=== PATIENT | female | born 1945 | race Caucasian/White ===

== ENCOUNTER → 2018-03-02 09:24 | Outpatient (CLI) | payer MEDICARE, OTHER, SELFPAY ==
--- NOTE | 2018-03-02 09:50 | DI.CT.S_ITS ---
PROCEDURE: CT LUMBAR SPINE WO CON INDICATIONS: lower back pains TECHNIQUE: Noncontrast 3 mm thick sections acquired from the T12 level to the sacrum. Sagittal and coronal reformats were constructed. For radiation dose reduction, the following was used: automated exposure control. COMPARISON: Merged With [facility], CT, CT LUMBAR SPINE WO CON, 03/09/2015, 19:30. FINDINGS: Image quality: Excellent. Bones: Diffuse osteopenia. Trace retrolisthesis of L3 on L4. No acute vertebral body compression fractures. No suspicious lytic or blastic bony lesions. Central spinal caliber is of normal overall caliber. No pars defects. Levoscoliosis centered at L2-L3. T12-L1: Mild broad-based posterior disc bulge and bilateral facet disease. No high-grade canal stenosis. No definite foraminal narrowing. L1-L2: Broad-based posterior disc bulge and bilateral facet arthropathy. Mild canal narrowing partial effacement of the left and right lateral recesses. No definite bony foraminal stenosis L2-L3: Broad-based posterior disc bulge and bilateral facet arthropathy. No high-grade canal stenosis. Lateral recesses appear grossly patent. Mild right foraminal narrowing. No left foraminal stenosis L3-L4: Broad-based posterior disc bulge and bilateral facet arthropathy. Moderate canal narrowing. There is partial effacement of the left right lateral recesses although probably symmetric. No definite bony foraminal stenoses L4-L5: Broad-based posterior disc bulge and bilateral facet arthropathy. Moderate canal narrowing Partial effacement of the left and right lateral recesses, although appears symmetric. No definite bony foraminal narrowing L5-S1: Broad-based posterior disc bulge and bilateral facet arthropathy. No high-grade canal stenosis. Minimal if any effacement of the lateral recesses. No definite bony foraminal narrowing. Soft tissues: No retroperitoneal masses or hematomas. Visualized aorta is normal in caliber. IMPRESSION: Diffuse lumbar disc degeneration, most pronounced in L1-L2 and L2-L3. Levoscoliosis as before. Moderate L3-L4 and L4-L5 canal narrowing. No definite interval change since prior study dated 03/09/15 Mild right L2-L3 foraminal stenosis, stable to minimally progressed. Dictated by: Nazario Watts M.D. on 03/02/2018 at 10:32 Approved by: Nazario Watts M.D. on 03/02/2018 at 10:41
== END ==
PROVIDERS: PCP Family Medicine; Visit Provider Physical Medicine & Rehabilitation
DX: M54.5 Low back pain (principal); M51.16 Intervertebral disc disorders with radiculopathy, lumbar region; M48.061 Spinal stenosis, lumbar region without neurogenic claudication; M41.86 Other forms of scoliosis, lumbar region
CPT/HCPCS: 72131

== ENCOUNTER 2018-03-06 12:20 | Outpatient (CLI) | payer MEDICARE, OTHER, SELFPAY ==
[2018-03-06] VITALS (7 sets, daily range): BP systolic 121–167; BP diastolic 53–97; PULSE 73–84; RESP 16–18; TEMP 36.3; O2SAT 95–100
--- NOTE | 2018-03-06 12:22 | DI.RAD.S_ITS ---
PROCEDURE: PAIN L/S TRANSFORAMINAL INJECT INDICATIONS: SPINAL STENOSIS FINDINGS: Fluoroscopic spot filming was performed to verify placement of spinal needles at the L3-L4 level(s), as labeled on the films. Appropriate location(s) of the needle tip(s) was confirmed by injection of iodinated contrast. IMPRESSION: Fluoroscopy for pain management. Dictated by: Ric Cuello M.D. on 03/06/2018 at 17:18 Approved by: Ric Cuello M.D. on 03/06/2018 at 17:18
[2018-03-06] MEDS: MIDAZOLAM 5 MG/5 ML VIAL IV (13:21)
[2018-03-06] MEDS: BUPIVACAINE 0.25% (PF) VIAL 2 ML INJ (13:27)
[2018-03-06] MEDS: IOPAMIDOL 15 ML VIAL 3 ML INJ (13:27)
[2018-03-06] MEDS: DEXAMETHASONE 10 MG/ML VIAL 20 MG INJ (13:28)
[2018-03-06] MEDS: methylPREDNISolone acetate 80 MG/ML VIAL INJ (13:28)
--- NOTE | 2018-03-06 13:31 | PC.NURSE ---
assisting pt off table and transporting to post proc area in stable condition
--- NOTE | 2018-03-06 13:37 | P.PCN_ITS ---
Procedures Date/Time Date of procedure: 03/06/18 Time of procedure: 13:36 General Procedure description: PROVIDER: Maurice Schroeder DO Operative Note PREOP DIAGNOSIS 1. FORAMINAL STENOSIS WITH LE SYMPTOMS, POST OP DIAGNOSIS 1. FORAMINAL STENOSIS WITH LE SYMPTOMS, PROCEDURES 1. FLUOROSCOPICALLY GUIDED CONTRAST CONTROLLED TRANSFORAMINAL EPIDURAL STEROID INJECTION - LEFT L3/4 TFESI SURGEON: Maurice Schroeder, DO INDICATIONS Holly is referred by Dr. Walker for treatment of Foraminal Stenosis with left LE Symptoms FINDINGS Foraminal Nerve Root Compression secondary to disc disease and facet hypertrophy DESCRIPTION OF PROCEDURE Following denial of allergy and review of potential side effects and complications, including, but not necessarily limited to, infection, allergic reaction, local tissue breakdown, stroke, temporary or permanent nerve injury, paralysis, and possible , the patient indicated that the patient understood and agreed to proceed. An informed consent document was signed by the patient, witnessed by a nurse, and placed in the patient's chart. Additionally, other treatment options including medications, modalities, and physical therapy were reviewed with the patient. After review of previous anaesthesic history and IV conscious sedation the patient was deemed safe to proceed with todays procedure with IV conscious sedation as ASA class II designation. Safety time-out was performed to confirm patient ID, procedure to be performed and site of procedure. IV sedation was accomplished with a combination of 3mg was administered by the RN after DO order , titrated to patient comfort during the course of the procedure while the patient remained responsive to all verbal commands In the prone position following sterile prep and drape of the lumbar region, the left L3/4 posterior neuroforamen was identified fluoroscopically. The skin was anesthetized via a 25-gauge 1.5-inch needle with 1% lidocaine solution. At this point, a 25-gauge 3.5-inch spinal needle was atraumatically introduced and advanced under fluoroscopic guidance through the posterior left L3/4 neuroforamen to approximately the anterior aspect of the canal. Depth was confirmed on lateral view. Following negative aspiration, injection of approximately 1.5 cc of Isovue 200 under live fluoroscopy in the AP view confirmed excellent flow along the nerve root, into the epidural space without vascular or intrathecal uptake observed Radiological data, including multiple fluoroscopic views of the lumbosacral spine, reveal a spinal needle at the left L3/4 posterior neuroforamen. Subsequent views show flow of contrast material flowing superiorly and inferiorly along the nerve root confirming epidural flow. Subsequently, a test dose of 1.5 cc of 1% lidocaine solution was administered and patient was observed for two minutes for signs or symptoms of complications , including abdominal pain, shortness of breath, bilateral upper or lower extremity weakness, nausea and vomiting, prior to steroid injection. At this point, a total of 3 cc or 20 mg of dexamethasone and 80mg Depo medrol was injected without incident. The patient tolerated the procedure well without signs or symptoms of complications prior to transfer to the recovery area continued monitoring without incident. The patient was then transferred to the recovery area where they were observed for an appropriate time after the injection. The patient reported a VAS score of 7 prior to the procedure and a post-procedure VAS of 0. Total Fluoroscopy Time: 24.2 seconds Total Conscious Sedation Time: 24min POST OP INSTRUCTIONS The patient was provided a Pain Log to continue to record their response to the target-specific procedure prior to follow-up visit with their referring physician. Additionally, specific post-injection care instructions and a contact number to our office were provided if concerns arise regarding possible complications associated with the procedure are suspected. Maurice Schroeder, Complications: none
--- NOTE | 2018-03-07 12:49 | PC.NURSE ---
FOLLOW UP CALL MADE. LEFT MSG WITH CLINIC NUMBER AND HOURS IF PT HAS QUESTIONS/CONCERNS.
== END 2018-03-06 14:22 ==
PROVIDERS: PCP Family Medicine; Visit Provider Physical Medicine & Rehabilitation
DX: M48.061 Spinal stenosis, lumbar region without neurogenic claudication (principal); M51.16 Intervertebral disc disorders with radiculopathy, lumbar region
CPT/HCPCS: 64483; 99152; J1040; J1100; J2250

== ENCOUNTER 2018-07-04 09:35 | Outpatient (CLI) | payer MEDICARE, OTHER, SELFPAY ==
[2018-07-04] VITALS (8 sets, daily range): BP systolic 119–142; BP diastolic 55–91; PULSE 67–84; RESP 16–18; TEMP 36; O2SAT 96–100
--- NOTE | 2018-07-04 09:37 | DI.RAD.S_ITS ---
PROCEDURE: PAIN L/SI FACET INJ/BLK 1STL INDICATIONS: SPONDYLOSIS FINDINGS: Fluoroscopic spot filming was performed to verify placement of spinal needles at the left L4-5, left L5-S1 facet joints, as labeled on the films. Appropriate location(s) of the needle tip(s) was confirmed by injection of iodinated contrast. IMPRESSION: Successful facet joint localization and injection on the left, at L4-5 and L5-S1. Dictated by: Wil Rivera M.D. on 07/04/2018 at 12:00 Approved by: Wil Rivera M.D. on 07/04/2018 at 12:01
[2018-07-04] MEDS: MIDAZOLAM 5 MG/5 ML VIAL IV (10:18)
[2018-07-04] MEDS: BUPIVACAINE 0.5% (PF) VIAL 2 ML INJ (10:25)
[2018-07-04] MEDS: IOPAMIDOL 15 ML VIAL 3 ML INJ (10:25)
[2018-07-04] MEDS: BETAMETHASONE 30 MG/5 ML MDV 12 MG INJ (10:25)
--- NOTE | 2018-07-04 10:32 | P.PCN_ITS ---
Procedures Date/Time Date of procedure: 07/04/18 Time of procedure: 10:31 General Procedure description: PREOP DIAGNOSIS 1. FACET ARTHROPATHY, 2. AXIAL LBP, 3. MULTILEVEL DDD, POST OP DIAGNOSIS 1. FACET ARTHROPATHY, 2. AXIAL LBP, 3. MULTILEVEL DDD, PROCEDURES 1. FLUORSCOPICALLY GUIDED CONTRAST CONTROLLED FACET JOINT INJECTIONS LEFT L4/5, L5/S1 SURGEON: Maurice Schroeder, DO INDICATIONS Holly is referred by for treatment of Axial LBP FINDINGS Multilevel Facet Arthropathy with Clinically significant axial LBP DESCRIPTION OF PROCEDURE Fluoroscopically guided, contrast-controlled left L4/5, L5/S1 facet joint inje ctions. Following denial of allergy and review of potential side effects and complications, including, but not necessarily limited to, infection, allergic reaction, local tissue breakdown, stroke, temporary or permanent nerve injury, paralysis, and possible , the patient indicated that the patient understood and agreed to proceed. An informed consent document was signed by the patient, witnessed by a nurse, and placed in the patient's chart. Additionally, other treatment options including medications, modalities, and physical therapy were reviewed with the patient. After review of previous anaesthesic history and IV conscious sedation the patient was deemed safe to proceed with todays procedure with IV conscious sedation as ASA class II designation. Safety time-out was performed to confirm patient ID, procedure to be performed and site of procedure. IV sedation was accomplished with a combination of 2mg was administered by the RN after DO order, titrated to patient comfort during the course of the procedure while the patient remained responsive to all verbal commands. In the prone position, following sterile prep and drape of the lumbar region, the posterior aspect of the left L4/5, L5/S1 facet joints were identified fluoroscopically. The skin was anesthetized via a 25-gauge 1.5-inch needle with 1% lidocaine solution into the corresponding facet joints. At this point, a 22- gauge 3.5-inch spinal needle was atraumatically introduced and advanced under fluoroscopic guidance into the corresponding facet joints. Following negative aspiration, injections of approximately 0.2-cc of Isovue 200 confirmed interarticular placement without vascular uptake. Radiological data, including multiple fluoroscopic views of the lumbosacral spine, reveal a spinal needle at the left L4/5, L5/S1 facet joints. Subsequent views show flow of contrast material both superiorly and inferiorly within the joint space without vascular or intrathecal uptake. At this point, a total of 0.5 cc including a mixture of 0.25cc Marcaine and 0.25cc betamethasone was injected without complication into each of the corresponding facet joints. The procedure tolerated the procedure well without signs or symptoms of complications prior to transfer to the recovery area continued monitoring without incident. The patient was then transferred to the recovery area where they were observed for an appropriate period of time after the injection. The patient reported a VAS score of 7 prior to the procedure and a post-procedure VAS of 0. Total Fluoroscopy Time: 12.7 seconds Total Conscious Sedation Time: 24min POST OP INSTRUCTIONS The patient was provided a Pain Log to continue to record their response to the target-specific procedure prior to follow-up visit with their referring physician. Additionally, specific post-injection care instructions and a contact number to our office were provided if concerns arise regarding possible complications associated with the procedure are suspected. Maurice Schroeder, Complications: none
--- NOTE | 2018-07-04 10:38 | PC.NURSE ---
pt tolerated procedure, pt awake and alert, Transferred to pre procedure room via wheelchair for continued monitoring with Sari NOVA.
--- NOTE | 2018-07-04 10:39 | PC.NURSE ---
ACCEPTED CARE OF PT IN POST PROC AREA IN STABLE CONDITION
--- NOTE | 2018-07-04 11:01 | DI.RAD.S_ITS ---
PROCEDURE: XR KNEE LT 3V INDICATIONS: left knee pain TECHNIQUE: 3 views of the knee were acquired. COMPARISON: None. FINDINGS: Bones: No fractures or dislocations. No suspicious bony lesions. Small tricompartment osteophytes. Soft tissues: No joint effusion. No suspicious soft tissue calcifications. IMPRESSION: 1. No acute bony abnormality of the left knee. 2. Degenerative arthritis of the left knee. There is probable joint space loss. But no weight bearing view was provided. Consider standing weight-bearing view to evaluate degree of joint space loss. Dictated by: Hossein Duncan M.D. on 07/04/2018 at 12:40 Approved by: Hossein Duncan M.D. on 07/04/2018 at 12:41
== END 2018-07-04 11:10 | disposition home or self-care (01) ==
LOC: RAD 09:36
PROVIDERS: PCP Family Medicine; Visit Provider Physical Medicine & Rehabilitation
DX: M47.817 Spondylosis without myelopathy or radiculopathy, lumbosacral region (principal); M47.816 Spondylosis without myelopathy or radiculopathy, lumbar region; M51.36 Other intervertebral disc degeneration, lumbar region; M51.37 Other intervertebral disc degeneration, lumbosacral region; M17.12 Unilateral primary osteoarthritis, left knee; M25.562 Pain in left knee; M54.5 Low back pain
CPT/HCPCS: 64493; 64494; 73562; 99152; J0702; J2250

== ENCOUNTER 2018-07-31 15:37 | Outpatient (CLI) | payer MEDICARE, OTHER, SELFPAY ==
[2018-07-31] VITALS (9 sets, daily range): BP systolic 115–157; BP diastolic 57–76; PULSE 83–90; RESP 16–20; TEMP 36; O2SAT 94–98
--- NOTE | 2018-07-31 15:41 | DI.RAD.S_ITS ---
PROCEDURE: PAIN L/S TRANSFORAMINAL INJECT INDICATIONS: SPINAL STENOSIS FINDINGS: Fluoroscopic spot filming was performed to verify placement of spinal needles at the L4-5 neural foramen level(s), as labeled on the films, on the left. Appropriate location(s) of the needle tip(s) was confirmed by injection of iodinated contrast. IMPRESSION: Perineural steroid epidural injection along the course of the left L4 nerve root adjacent to the left L4-L5 neural foramen. Dictated by: Wil Rivera M.D. on 07/31/2018 at 16:59 Approved by: Wil Rivera M.D. on 07/31/2018 at 17:00
[2018-07-31] MEDS: MIDAZOLAM 5 MG/5 ML VIAL IV (16:07)
[2018-07-31] MEDS: fentaNYL 100 MCG/2 ML INJ 50 MCG IV (16:13)
[2018-07-31] MEDS: BUPIVACAINE 0.25% (PF) VIAL 2 ML INJ (16:22)
[2018-07-31] MEDS: IOPAMIDOL 15 ML VIAL 3 ML INJ (16:22)
[2018-07-31] MEDS: DEXAMETHASONE 10 MG/ML VIAL 20 MG INJ (16:22)
--- NOTE | 2018-07-31 16:37 | P.PCN_ITS ---
Procedures Date/Time Date of procedure: 07/31/18 Time of procedure: 16:35 General Procedure description: PREOP DIAGNOSIS 1. FORMAINAL STENOSIS WITH LE SYMPTOMS POST OP DIAGNOSIS 1. FORMAINAL STENOSIS WITH LE SYMPTOMS PROCEDURES 1. FLUOROSCOPICALLY GUIDED CONTRAST CONTROLLED TRANSFORAMINAL EPIDURAL STEROID INJECTION - LEFT L4/5 PHYSICIAN: Maurice Schroeder DO INDICATIONS: Holly is referred by Dr. Walker for treatment of Foraminal Stenosis with Left LE Symptoms FINDINGS Foraminal Nerve Root Compression secondary to disc disease and facet hypertrophy DESCRIPTION OF PROCEDURE: Following denial of allergy and review of potential side effects and complications, including, but not necessarily limited to, infection, allergic reaction, local tissue breakdown, stroke, temporary or permanent nerve injury, paralysis, and possible , the patient indicated that the patient understood and agreed to proceed. An informed consent document was signed by the patient, witnessed by a nurse, and placed in the patient's chart. Additionally, other treatment options including medications, modalities, and physical therapy were reviewed with the patient. After review of previous anaesthesic history and IV conscious sedation the patie nt was deemed safe to proceed with todays procedure with IV conscious sedation as ASA class II designation. Safety time-out was performed to confirm patient ID, procedure to be performed and site of procedure. IV sedation was accomplished with a combination of 3mg of Versed and 50mcg of Fentanyl administered by the RN after DO order, titrated to patient comfort during the course of the procedure while the patient remained responsive to all verbal commands In the prone position following sterile prep and drape of the lumbar region, the left L4/5 posterior neuroforamen was identified fluoroscopically. The skin was anesthetized via a 25-gauge 1.5-inch needle with 1% lidocaine solution. At this point, a 25-gauge 3.5-inch spinal needle was atraumatically introduced and advanced under fluoroscopic guidance through the posterior left L4/5 neuroforamen to approximately the anterior aspect of the canal. Depth was confirmed on lateral view. Following negative aspiration, injection of appr oximately 1.5 cc of Isovue 200 under live fluoroscopy in the AP view confirmed excellent flow along the nerve root, into the epidural space without vascular or intrathecal uptake observed Radiological data, including multiple fluoroscopic views of the lumbosacral spine, reveal a spinal needle at the left L4/5 posterior neuroforamen. Subsequent views show flow of contrast material flowing superiorly and inferiorly along the nerve root confirming epidural flow. Subsequently, a test dose of 1.5 cc of 1% lidocaine solution was administered and patient was observed for two minutes for signs or symptoms of complications, including abdominal pain, shortness of breath, bilateral upper or lower extremity weakness, nausea and vomiting, prior to steroid injection. At this point, a total of 2cc or 20mg of dexamethasone was injected without incident. The procedure tolerated the procedure well without signs or symptoms of complications prior to transfer to the recovery area continued monitoring without incident. The patient was then transferred to the recovery area where they were observed for an appropriate time after the injection. The patient reported a VAS score of 7 prior to the procedure and a post- procedure VAS of 0. Total Fluoroscopy Time: 20.9 seconds Total Conscious Sedation Time: 24min POST OP INSTRUCTIONS The patient was provided a Pain Log to continue to record their response to the target-specific procedure prior to follow-up visit with their referring physician. Additionally, specific post-injection care instructions and a contact number to our office were provided if concerns arise regarding possible complications associated with the procedure are suspected. Maurice Schroeder DO Complications: none
--- NOTE | 2018-07-31 16:41 | PC.NURSE ---
Pt returned post procedure via wheelchair awake and alert. Pt able to get from w/c to chair with standby assist. Resumed monitoring from Sari NOVA.
--- NOTE | 2018-08-01 15:46 | PC.NURSE ---
FOLLOW UP CALL MADE, LEFT PHONE MSG WITH CLINIC NUMBER AND HOURS IN CASE OF QUESTIONS/CONCERNS.
== END 2018-07-31 16:55 ==
LOC: RAD 15:40
PROVIDERS: PCP Family Medicine; Visit Provider Physical Medicine & Rehabilitation
DX: M48.061 Spinal stenosis, lumbar region without neurogenic claudication (principal); M51.16 Intervertebral disc disorders with radiculopathy, lumbar region; M47.27 Other spondylosis with radiculopathy, lumbosacral region
CPT/HCPCS: 64483; 99152; J1100; J2250; J3010

== ENCOUNTER 2018-10-04 12:29 | Outpatient (CLI) | payer MEDICARE, OTHER, SELFPAY ==
[2018-10-04] VITALS (7 sets, daily range): BP systolic 124–151; BP diastolic 65–108; PULSE 77–87; RESP 14–16; TEMP 36.2; O2SAT 97–100
--- NOTE | 2018-10-04 12:31 | DI.RAD.S_ITS ---
PROCEDURE: PAIN L/SI FACET INJ/BLK 1STL INDICATIONS: SPONDYLOSIS FINDINGS: Fluoroscopic spot filming was performed to verify placement of spinal needles at the level(s) as labeled on the films. Appropriate location(s) of the needle tip(s) was confirmed by injection of iodinated contrast. IMPRESSION: Fluoroscopy for pain management. Dictated by: Ric Cuello M.D. on 10/04/2018 at 14:54 Approved by: Ric Cuello M.D. on 10/04/2018 at 14:55
[2018-10-04] MEDS: MIDAZOLAM 5 MG/5 ML VIAL IV (13:25)
[2018-10-04] MEDS: fentaNYL 100 MCG/2 ML INJ 50 MCG IV (13:25)
[2018-10-04] MEDS: BETAMETHASONE 30 MG/5 ML MDV 12 MG INJ (13:35)
[2018-10-04] MEDS: LIDOCAINE 1% 20 ML INJ 10 ML INJ (13:35)
[2018-10-04] MEDS: IOPAMIDOL 15 ML VIAL 3 ML INJ (13:35)
[2018-10-04] MEDS: BUPIVACAINE 0.5% (PF) VIAL 2 ML INJ (13:35)
--- NOTE | 2018-10-04 13:42 | PC.NURSE ---
pt tolerated procedure well. Able to get off the table with standby assist. Transferred pt to pre procedure room awake and alert via wheelchair for continued monitoring with Sari NOVA.
--- NOTE | 2018-10-04 13:51 | P.PCN_ITS ---
Procedures Date/Time Date of procedure: 10/04/18 Time of procedure: 13:50 General Procedure description: POST OP DIAGNOSIS 1. FACET ARTHROPATHY PROCEDURES 1. Left L4, L5 and S1 MB BLOCKS PHYSICIAN: DO PETEY Qiu Holly is referred by Dr. Walker for treatment of Left Axial LBP. DESCRIPTION OF PROCEDURE Fluoroscopically guided, contrast-controlled left L4, L5 and S1 medial branch blocks with 0.5cc of 0.5% Marcaine. Following review of allergy and review of potential side effects and complications, including, but not necessarily limited to, infection, allergic reaction, local tissue breakdown, nerve injury, paralysis, stroke and possible , the patient indicated that the patient understood and agreed to proceed. An informed consent document was signed by the patient, witnessed by a nurse, and placed in the patient's chart. After review of previous anaesthesic history and IV conscious sedation the patient was deemed safe to proceed with todays procedure with IV conscious sedation as ASA class II designation. Safety time-out was performed to confirm patient ID, procedure to be performed and site of procedure. IV sedation was accomplished with a combination of 3mg of Versed and 50mcg of Fentanyl was administered by the RN after DO order, titrated to patient comfort during the course of the procedure while the patient remained responsive to all verbal commands. In the prone position, following sterile prep and drape of the lumbar region, the left L4, L5 and S1 anatomical location of the medial branch of the dorsal ramus was identified fluoroscopically. Subsequently an anesthetic skin wheal using 1% lidocaine solution was initiated at each of the anatomical spots. Subsequently then a 22-gauge 3.5-inch spinal needle was atraumatically introduced and advanced under fluoroscopic guidance at each of the corresponding sites at the left L4, L5 and S1 MB. After negative aspiration, 0.2 cc of Isovue 200 was injected, confirming placement without vascular or intrathecal uptake. Subsequently then 0.5 cc of 0.5% Marcaine solution was injected at each of the corresponding sites at the left L4, L5 and S1 medial branch locations. The patient tolerated the procedure well without signs or symptoms of complications. The patient tolerated the procedure well without signs or symptoms of complications prior to transfer to the recovery area continued monitoring without incident. Post-procedure, the patient was monitored initiating provocative activities to measure the amount of relief from block of the facetogenic pain. The patient reported a VAS of 7 prior to the procedure and a post-procedure VAS of 1. It has been a pleasure to assist in the diagnostic and therapeutic care of your patient. Total Fluoroscopy Time: 24.8 seconds Total Conscious Sedation Time: 24min POST OP INSTRUCTIONS The patient was provided with a Pain Log to complete over the next several hours and subsequent days prior to the patient's follow up with the ordering physician. If the patient has human resources representative relief to the solution applied, then they may be a candidate for medial branch rhizotomy. The patient is aware, was provided, once again, with a Pain Log and will follow up with the referring physician for review and clinical correlation Maurice Schroeder DO Complications: none
--- NOTE | 2018-10-04 13:58 | PC.NURSE ---
ACCEPTED CARE OF PT IN POST PROC AREA IN STABLE CONDITION
== END 2018-10-04 14:15 | disposition home or self-care (01) ==
LOC: RAD 12:30
PROVIDERS: PCP Family Medicine; Visit Provider Physical Medicine & Rehabilitation
DX: M47.817 Spondylosis without myelopathy or radiculopathy, lumbosacral region (principal); M47.816 Spondylosis without myelopathy or radiculopathy, lumbar region
CPT/HCPCS: 64493; 64494; 99152; J0702; J2250; J3010

== ENCOUNTER 2018-11-08 11:05 | Outpatient (CLI) | payer MEDICARE, OTHER, SELFPAY ==
[2018-11-08] VITALS (14 sets, daily range): BP systolic 106–145; BP diastolic 52–90; PULSE 66–78; RESP 16–20; TEMP 36.1; O2SAT 97–100
--- NOTE | 2018-11-08 11:07 | DI.RAD.S_ITS ---
PROCEDURE: PAIN L/S MED/LAT N RFA INDICATIONS: SPONDYLOSIS FINDINGS: Fluoroscopic spot filming was performed to verify placement of spinal needles at the L4, L5, S1 level(s), as labeled on the films. Appropriate location(s) of the needle tip(s) was confirmed by injection of iodinated contrast. Dictated by: Nazario Watts M.D. on 11/08/2018 at 13:00 Approved by: Nazario Watts M.D. on 11/08/2018 at 13:00
--- NOTE | 2018-11-08 11:08 | DI.RAD.S_ITS ---
PROCEDURE: XR LUMBAR SPINE MIN 4V INDICATIONS: eval TECHNIQUE: 4 views of the lumbar spine were acquired. COMPARISON: [facility], CR, SPINE LUMB MIN 4VW, 08/21/2014, 16:01. FINDINGS: Bones: No fracture or focal osseous destruction. Trace retrolisthesis of L3 on L4. Multilevel degenerative endplate sclerosis and spurring. Diffuse facet arthropathy. Severe narrowing of the L2-L3 disc space. Moderate narrowing of the L1-L2 and L3-L4 disc space. Mild narrowing of the L4-L5 disc space. Levoscoliosis Soft tissues: Scattered vascular calcifications seen in the aorta. Right upper quadrant surgical clips. Oblique images: No pars defects. IMPRESSION: Levoscoliosis and multilevel lumbar spondylosis and facet arthropathy as above. No definite change since 08/21/14. Dictated by: Nazario Watts M.D. on 11/08/2018 at 13:56 Approved by: Nazario Watts M.D. on 11/08/2018 at 14:04
[2018-11-08] MEDS: MIDAZOLAM 5 MG/5 ML VIAL IV (11:55)
[2018-11-08] MEDS: fentaNYL 100 MCG/2 ML INJ 50 MCG IV (11:55)
[2018-11-08] MEDS: BUPIVACAINE 0.5% (PF) VIAL 5 ML INJ (12:00)
[2018-11-08] MEDS: LIDOCAINE 1% 20 ML INJ 10 ML INJ (12:01)
[2018-11-08] MEDS: BETAMETHASONE 30 MG/5 ML MDV 12 MG INJ (12:01)
--- NOTE | 2018-11-08 12:24 | PC.NURSE ---
Pt tolerated procedure well. Able to get off table with standby assist. Transferred pt via wheelchair to pre procedure room for continued monitoring with Tu.
--- NOTE | 2018-11-08 12:37 | P.PCN_ITS ---
Procedures Date/Time Date of procedure: 11/08/18 Time of procedure: 12:36 General Procedure description: PREOP DIAGNOSIS 1. RECALCITRANT FACET ARTHROPATHY, POST OP DIAGNOSIS 1. RECALCITRANT FACET ARTHROPATHY, PROCEDURES 1. LEFTT L4 AND L5 MEDIAL BRANCH RADIOFREQUENCY NEUROTOMY AND LEFT S1 DORSAL RAMUS RADIOFREQUENCY NEUROTOMY, PHYSICIAN: Maurice Schroeder DO INDICATIONS Holly is referred by for treatment of facet arthropathy. DESCRIPTION OF PROCEDURE Left L4 and L5 medial branch radiofrequency neurotomy and left S1 dorsal ramus branch radiofrequency neurotomy under fluoroscopy with conscious sedation. The patient is well known to this clinic having undergone previous facet injections with good but temporary relief. The patient has experienced appropriate, concordant relief with previous facet and median branch blocks but the patient's pain has been recalcitrant to further conservative measures. Therefore, based upon the patient's relief and persistent symptoms, the patient is considered an appropriate candidate for facet rhizotomy. All of the patient's questions regarding the risks versus benefits of the procedure, including, but not limited to, bleeding, infection, temporary as well as lasting nerve injury, paralysis, stroke, and , as well treatment alternatives were answered to satisfaction. After obtaining informed consent, denial of pertinent drug allergies, as well as being made aware of the potential risks of bleeding, infection, spinal cord trauma, paralysis, temporary and permanent nerve damage, seizure, stroke, and possible , the patient was brought to the fluoroscopy suite and positioned prone on the fluoroscopy table. The lumbar region was prepped with Betadine and covered with a fenestrated drape in the usual sterile fashion. Appropriate monitors applied including pulse oximeter, pulse, and blood pressure for regular monitoring throughout the procedure. IV sedation was accomplished with a combination of 3mg of Versed and 50mcg of Fentanyl titrated to patient comfort during the course of the procedure while the patient remained responsive to all verbal commands. After local infiltration using 1% lidocaine, under fluoroscopic guidance, a 10- cm RF insulated needle with a 10-mm active tip was positioned parallel to the junction of the left sacral ala and the superior articulating process where the S1 dorsal ramus resides. Needle placement was confirmed with sensory stimulation at 50 Hz, with motor stimulation of .5v on the left which produced local stimulation without radicular component. The stimulation was then increased to 1.5v with, once again, only local multifidus stimulation without radicular component. This was then followed by two discreet lesions performed at 80 degrees Celsius for 90 seconds each. The needle was then removed and the identical procedure was performed along the length of the left L5 medial branch with motor stimulation at .7v on the leftt. The identical procedure was once again performed along the length of the left L4 medial branch with motor stimulation of .5v on the left. The patient tolerated the procedure well without signs or symptoms of complications prior to transfer to the recovery area continued monitoring without incident. The patient was then transferred to the recovery area where they were observed for an appropriate period of time after the injection. The patient was then transferred to the recovery area where they were observed for an appropriate period of time after the injection. The patient reported a VAS score of 9 prior to the procedure and a post- procedure VAS of 0. Total Fluoroscopy Time: 22.7 seconds Total Conscious Sedation Time: 34min POST OP INSTRUCTIONS The patient was provided a Pain Log to continue to record the patient's response to the target-specific procedure prior to the patient's follow-up visit with the referring physician. Additionally, specific post-injection care instructions and a contact number to our office were provided if concerns arise regarding possible complications associated with the procedure are suspected. Maurice Schroeder, Complications: none
== END 2018-11-08 12:59 ==
PROVIDERS: PCP Family Medicine; Visit Provider Physical Medicine & Rehabilitation
DX: M47.817 Spondylosis without myelopathy or radiculopathy, lumbosacral region (principal); M47.816 Spondylosis without myelopathy or radiculopathy, lumbar region
CPT/HCPCS: 64494; 64635; 64636; 72110; 99152; J0702; J2250; J3010

== ENCOUNTER → 2019-12-07 10:08 | Outpatient (CLI) | payer MEDICARE, OTHER, SELFPAY ==
[2019-12-08 21:05] LABS: COVID19 Sendout Not Detected (Not Detect)
== END ==
PROVIDERS: PCP Family Medicine; Visit Provider Physician Assistant
DX: Z11.59 Encounter for screening for other viral diseases (principal)
CPT/HCPCS: 87635

== ENCOUNTER 2019-12-10 12:56 | Outpatient (CLI) | payer MEDICARE, OTHER, SELFPAY ==
[2019-12-10] VITALS (10 sets, daily range): BP systolic 114–168; BP diastolic 54–76; PULSE 66–78; RESP 14–30; O2SAT 66–100
--- NOTE | 2019-12-10 13:01 | DI.RAD.S_ITS ---
PROCEDURE: PAIN L/SI FACET INJ/BLK 1STL INDICATIONS: SPONDYLOSIS COMPARISON: [facility], , PAIN L/SI FACET INJ/BLK 1STL, 10/04/2018, 13:39. FINDINGS: Fluoroscopic spot filming was performed to verify placement of spinal needles at the L1, L2, L3, L4 level(s), as labeled on the films. Appropriate location(s) of the needle tip(s) was confirmed by injection of iodinated contrast. Dictated by: Nazario Watts M.D. on 12/10/2019 at 14:57 Approved by: Nazario Watts M.D. on 12/10/2019 at 14:57
[2019-12-10] MEDS: fentaNYL 100 MCG/2 ML INJ 50 MCG IV (14:01)
[2019-12-10] MEDS: MIDAZOLAM 5 MG/5 ML VIAL IV (14:01)
[2019-12-10] MEDS: BUPIVACAINE 0.5% (PF) VIAL 5 ML INJ (14:14)
[2019-12-10] MEDS: IOPAMIDOL 15 ML VIAL 3 ML INJ (14:14)
[2019-12-10] MEDS: LIDOCAINE 1% 20 ML 10 ML INJ (14:15)
--- NOTE | 2019-12-10 14:22 | PM.PROC.IR.1 ---
Date/Time/Diagnoses Date of procedure: 12/10/19 Time of procedure: 14:22 Pre-procedure diagnosis: 1. FACET ARTHROPATHY Post-procedure diagnosis: same Procedure Notes Procedure: 1. Right L1, L2, L3 and L4 MB BLOCKS Indications: Holly is referred by for treatment of Right Axial LBP. Physician: Maurice Schroeder Total Fluoroscopy time (seconds): 10 Total sedation minutes: 15 Complications: none Procedure in detail & Post-procedure care: DESCRIPTION OF PROCEDURE Fluoroscopically guided, contrast-controlled right L1, L2, L3 and L4 medial branch blocks with 0.5cc of 0.5% Marcaine. Following review of allergy and review of potential side effects and complications, including, but not necessarily limited to, infection, allergic reaction, local tissue breakdown, nerve injury, paralysis, stroke and possible , the patient indicated that the patient understood and agreed to proceed. An informed consent document was signed by the patient, witnessed by a nurse, and placed in the patient's chart. After review of previous anaesthesic history and IV conscious sedation the patient was deemed safe to proceed with today?s procedure with IV conscious sedation as ASA class II designation. Safety time-out was performed to confirm patient ID, procedure to be performed and site of procedure. IV sedation was accomplished with a combination of 3mg of Versed and 50mcg of Fentanyl was administered by the RN after DO order, titrated to patient comfort during the course of the procedure while the patient remained responsive to all verbal commands In the prone position, following sterile prep and drape of the lumbar region, the right L1, L2, L3 and L4 anatomical location of the medial branch of the dorsal ramus was identified fluoroscopically. Subsequently an anesthetic skin wheal using 1% lidocaine solution was initiated at each of the anatomical spots. Subsequently then a 22-gauge 3.5-inch spinal needle was atraumatically introduced and advanced under fluoroscopic guidance at each of the corresponding sites at the right L1, L2, L3 and L4 MB. After negative aspiration, 0.2 cc of Isovue 200 was injected, confirming placement without vascular or intrathecal uptake. Subsequently then 0.5 cc of 0.5% Marcaine solution was injected at each of the corresponding sites at the right L1, L2, L3 and L4 medial branch locations. The patient tolerated the procedure well without signs or symptoms of complications. The procedure tolerated the procedure well without signs or symptoms of complications prior to transfer to the recovery area continued monitoring without incident. Post-procedure, the patient was monitored initiating provocative activities to measure the amount of relief from block of the facetogenic pain. The patient reported a VAS of 7 prior to the procedure and a post-procedure VAS of 1. It has been a pleasure to assist in the diagnostic and therapeutic care of your patient. POST OP INSTRUCTIONS The patient was provided with a Pain Log to complete over the next several hours and subsequent days prior to the patient's follow up with the ordering physician. If the patient has sweeping compound blender relief to the solution applied, then they may be a candidate for medial branch rhizotomy. The patient is aware, was provided, once again, with a Pain Log and will follow up with the referring physician for review and clinical correlation.
--- NOTE | 2019-12-10 14:25 | PC.NURSE ---
pt tolerated procedure well, assisted from table to wc, returned to pre proc room for further monitoring
== END 2019-12-10 14:55 | disposition home or self-care (01) ==
LOC: RAD 13:00
PROVIDERS: PCP Family Medicine; Referring Provider Physical Medicine & Rehabilitation; Visit Provider Physical Medicine & Rehabilitation
DX: M47.816 Spondylosis without myelopathy or radiculopathy, lumbar region (principal); M54.5 Low back pain
CPT/HCPCS: 64493; 64494; 64495; 99152; J2250; J3010

== ENCOUNTER → 2020-06-15 13:29 | Outpatient (CLI) | payer MEDICARE, OTHER, SELFPAY ==
[2020-06-15 15:21] LABS: COVID19 -Nasal RAPID Negative (Negative)
== END ==
PROVIDERS: PCP Family Medicine; Visit Provider Physical Medicine & Rehabilitation
DX: Z20.822 Contact with and (suspected) exposure to COVID-19 (principal)
CPT/HCPCS: 87635; C9803

== ENCOUNTER 2020-06-16 09:18 | Outpatient (CLI) | payer MEDICARE, OTHER, SELFPAY ==
[2020-06-16] VITALS (8 sets, daily range): BP systolic 109–178; BP diastolic 53–80; PULSE 66–80; RESP 17–21; TEMP 36.6; O2SAT 96–100
--- NOTE | 2020-06-16 09:22 | DI.RAD.S_ITS ---
PROCEDURE: PAIN L/S TRANSFORAMINAL INJECT INDICATIONS: SPONDYLOSIS COMPARISON: None. FINDINGS: Fluoroscopic spot filming was performed to verify placement of spinal needles at the L4-L5 level(s), as labeled on the films. Appropriate location(s) of the needle tip(s) was confirmed by injection of iodinated contrast. IMPRESSION: Fluoroscopy for pain management. Dictated by: Ric Cuello M.D. on 06/16/2020 at 11:31 Approved by: Ric Cuello M.D. on 06/16/2020 at 11:31
[2020-06-16] MEDS: fentaNYL 100 MCG/2 ML INJ 50 MCG IV (10:36)
[2020-06-16] MEDS: MIDAZOLAM 5 MG/5 ML VIAL IV (10:39)
[2020-06-16] MEDS: BUPIVACAINE 0.25% (PF) VIAL 2 ML INJ (10:41)
[2020-06-16] MEDS: DEXAMETHASONE 10 MG/ML VIAL 20 MG INJ (10:42)
[2020-06-16] MEDS: IOPAMIDOL 15 ML VIAL 3 ML INJ (10:42)
[2020-06-16] MEDS: BETAMETHASONE 30 MG/5 ML MDV 6 MG INJ (10:42)
--- NOTE | 2020-06-16 11:01 | P.PCN_ITS ---
Date/Time/Diagnoses Date of procedure: 06/16/20 Time of procedure: 11:01 Pre-procedure diagnosis: 1. FORAMINAL STENOSIS WITH LE SYMPTOMS Post-procedure diagnosis: same Procedure Notes Procedure: 1. FLUOROSCOPICALLY GUIDED CONTRAST CONTROLLED TRANSFORAMINAL EPIDURAL STEROID INJECTION - LEFT L4/5 Indications: Holly is referred by Dr. Walker for treatment of Foraminal Stenosis with Left LE Symptoms Physician: Maurice Schroeder Total Fluoroscopy time (seconds): 21 Total sedation minutes: 17 Complications: none Procedure in detail & Post-procedure care: FINDINGS Foraminal Nerve Root Compression secondary to disc disease and facet hypertrophy DESCRIPTION OF PROCEDURE Following review of allergy and review of potential side effects and complications, including, but not necessarily limited to, infection, allergic reaction, local tissue breakdown, stroke, temporary or permanent nerve injury, paralysis, and possible , the patient indicated that the patient understood and agreed to proceed. An informed consent document was signed by the patient, witnessed by a nurse, and placed in the patient's chart. Additionally, other treatment options including medications, modalities, and physical therapy were reviewed with the patient. After review of previous anaesthesic history and IV conscious sedation the patient was deemed safe to proceed with today?s procedure with IV conscious sedation as ASA class II designation. Safety time-out was performed to confirm patient ID, procedure to be performed and site of procedure. IV sedation was accomplished with a combination of 3mg of Versed and 50mcg of Fentanyl administered by the RN after DO order, titrated to patient comfort during the course of the procedure while the patient remained responsive to all verbal commands In the prone position following sterile prep and drape of the lumbar region, the left L4/5 posterior neuroforamen was identified fluoroscopically. The skin was anesthetized via a 25-gauge 1.5-inch needle with 1% lidocaine solution. At this point, a 22-gauge 5-inch spinal needle was atraumatically introduced and advanced under fluoroscopic guidance through the posterior left L4/5 neuroforamen to approximately the anterior aspect of the canal. Depth was confirmed on lateral view. Following negative aspiration, injection of approximately 1.5 cc of Isovue 200 under live fluoroscopy in the AP view confirmed excellent flow along the nerve root, into the epidural space without vascular or intrathecal uptake observed Radiological data, including multiple fluoroscopic views of the lumbosacral spine, reveal a spinal needle at the left L4/5 posterior neuroforamen. Subsequent views show flow of contrast material flowing superiorly and inferiorly along the nerve root confirming epidural flow. Subsequently, a test dose of 1.5 cc of 1% lidocaine solution was administered and patient was observed for two minutes for signs or symptoms of complications, including abdominal pain, shortness of breath, bilateral upper or lower extremity weakness, nausea and vomiting, prior to steroid injection. At this point, a total of 4cc or 20mg of dexamethasone and 12mg of betamethasone was injected without incident. The procedure tolerated the procedure well without signs or symptoms of complications prior to transfer to the recovery area continued monitoring without incident. The patient was then transferred to the recovery area where they were observed for an appropriate time after the injection. The patient reported a VAS score of 7 prior to the procedure and a post- procedure VAS of 0. POST OP INSTRUCTIONS The patient was provided a Pain Log to continue to record their response to the target-specific procedure prior to follow-up visit with their referring physician. Additionally, specific post-injection care instructions and a contact number to our office were provided if concerns arise regarding possible complications associated with the procedure are suspected.
== END 2020-06-16 11:15 | disposition home or self-care (01) ==
LOC: RAD 09:22
PROVIDERS: PCP Family Medicine; Referring Provider Physical Medicine & Rehabilitation; Visit Provider Physical Medicine & Rehabilitation
DX: M48.061 Spinal stenosis, lumbar region without neurogenic claudication (principal); M51.16 Intervertebral disc disorders with radiculopathy, lumbar region
CPT/HCPCS: 64483; 99152; J0702; J1100; J2250; J3010

== ENCOUNTER 2020-11-19 14:03 | Outpatient (CLI) | payer MEDICARE, OTHER, SELFPAY ==
[2020-11-19] VITALS (8 sets, daily range): BP systolic 136–201; BP diastolic 60–96; PULSE 68–84; RESP 16–27; TEMP 36.4; O2SAT 97–99
--- NOTE | 2020-11-19 | DI.RAD.S_ITS ---
PROCEDURE: PAIN L/S FACET INJ/BLK 1ST [facility] COMPARISON: None. INDICATIONS: Radiculopathy, lumbosacral region FINDINGS: Fluoroscopic spot filming was performed to verify placement of spinal needles at the L4-L5 level(s), as labeled on the films. Appropriate location(s) of the needle tip(s) was confirmed by injection of iodinated contrast. Dictated by: Nazario Watts M.D. on 11/19/2020 at 15:51 Approved by: Nazario Watts M.D. on 11/19/2020 at 15:51
[2020-11-19] MEDS: fentaNYL 100 MCG/2 ML INJ 50 MCG IV (14:51)
[2020-11-19] MEDS: MIDAZOLAM 5 MG/5 ML VIAL IV (14:51)
[2020-11-19] MEDS: IOPAMIDOL 15 ML VIAL 3 ML INJ (14:57)
[2020-11-19] MEDS: BETAMETHASONE 30 MG/5 ML MDV 12 MG INJ (14:57)
[2020-11-19] MEDS: BUPIVACAINE 0.25% (PF) VIAL 2 ML INJ (14:57)
[2020-11-19] MEDS: DEXAMETHASONE 10 MG/ML VIAL 20 MG INJ (14:58)
[2020-11-19] MEDS: LIDOCAINE 1% 20 ML 10 ML INJ (14:59)
--- NOTE | 2020-11-19 15:17 | PM.PROC.IR.1 ---
Date/Time/Diagnoses Date of procedure: 11/19/20 Time of procedure: 15:17 Pre-procedure diagnosis: 1. FORAMINAL STENOSIS WITH LE SYMPTOMS Procedure Notes Procedure: 1. FLUOROSCOPICALLY GUIDED CONTRAST CONTROLLED TRANSFORAMINAL EPIDURAL STEROID INJECTION - BILATERAL L4/5 TFESI Indications: Holly is referred by Dr. Walker for treatment of Foraminal Stenosis with bilateral LE Symptoms Physician: Maurice Schroeder Total Fluoroscopy time (seconds): 23 Total sedation minutes: 23 Complications: none Procedure in detail & Post-procedure care: FINDINGS Foraminal Nerve Root Compression secondary to disc disease and facet hypertrophy DESCRIPTION OF PROCEDURE Following review of allergy and review of potential side effects and complications, including, but not necessarily limited to, infection, allergic reaction, local tissue breakdown, stroke, temporary or permanent nerve injury, paralysis, and possible , the patient indicated that the patient understood and agreed to proceed. An informed consent document was signed by the patient, witnessed by a nurse, and placed in the patient's chart. Additionally, other treatment options including medications, modalities, and physical therapy were reviewed with the patient. After review of previous anaesthesic history and IV conscious sedation the patient was deemed safe to proceed with today?s procedure with IV conscious sedation as ASA class II designation. Safety time-out was performed to confirm patient ID, procedure to be performed and site of procedure. IV sedation was accomplished with a combination of 2mg of Versed and 50mcg of Fentanyl was administered by the RN after DO order, titrated to patient comfort during the course of the procedure while the patient remained responsive to all verbal commands In the prone position following sterile prep and drape of the lumbar region, the right L4/5 posterior neuroforamen was identified fluoroscopically. The skin was anesthetized via a 25-gauge 1.5-inch needle with 1% lidocaine solution. At this point, a 25-gauge 3.5-inch spinal needle was atraumatically introduced and advanced under fluoroscopic guidance through the posterior right L4/5 neuroforamen to approximately the anterior aspect of the canal. Depth was confirmed on lateral view. Following negative aspiration, injection of approximately 1.5cc of Isovue 200 under live fluoroscopy in the AP view confirmed excellent flow along the nerve root, into the epidural space without vascular or intrathecal uptake observed Radiological data, including multiple fluoroscopic views of the lumbosacral spine, reveal a spinal needle at the right L4/5 posterior neuroforamen. Subsequent views show flow of contrast material flowing superiorly and inferiorly along the nerve root confirming epidural flow. Subsequently, a test dose of 1.5cc of 1% lidocaine solution was administered and patient was observed for two minutes for signs or symptoms of complications, including abdominal pain, shortness of breath, bilateral upper or lower extremity weakness, nausea and vomiting, prior to steroid injection. At this point, a total of 3cc or 20mg of dexamethasone and 6mg betamethasone was injected without incident. Attention was then refocused to the left L4/5 level where the identical procedure was replicated. The procedure tolerated the procedure well without signs or symptoms of complications prior to transfer to the recovery area continued monitoring without incident. The patient was then transferred to the recovery area where they were observed for an appropriate time after the injection. The patient reported a VAS score of 7 prior to the procedure and a post-procedure VAS of 0. POST OP INSTRUCTIONS The patient was provided a Pain Log to continue to record their response to the target-specific procedure prior to follow-up visit with their referring physician. Additionally, specific post-injection care instructions and a contact number to our office were provided if concerns arise regarding possible complications associated with the procedure are suspected.
== END 2020-11-19 15:30 | disposition home or self-care (01) ==
LOC: RAD 14:04
PROVIDERS: PCP Family Medicine; Referring Provider Physical Medicine & Rehabilitation; Visit Provider Physical Medicine & Rehabilitation
DX: M48.061 Spinal stenosis, lumbar region without neurogenic claudication (principal); M51.16 Intervertebral disc disorders with radiculopathy, lumbar region; M54.17 Radiculopathy, lumbosacral region
CPT/HCPCS: 64483; 64493; 99152; 99153; J0702; J1100; J2250; J3010

== ENCOUNTER → 2021-02-10 14:27 | Outpatient (CLI) | payer MEDICARE, OTHER, SELFPAY ==
[2021-02-10 14:52] LABS: COVID19 -Nasal RAPID Negative (Negative)
== END ==
PROVIDERS: PCP Family Medicine; Visit Provider Physical Medicine & Rehabilitation
DX: Z20.822 Contact with and (suspected) exposure to COVID-19 (principal)
CPT/HCPCS: 87635; C9803

== ENCOUNTER 2021-02-11 10:44 | Outpatient (CLI) | payer MEDICARE, OTHER, SELFPAY ==
[2021-02-11] VITALS (7 sets, daily range): BP systolic 123–183; BP diastolic 60–83; PULSE 71–79; RESP 14–22; O2SAT 96–100
--- NOTE | 2021-02-11 10:45 | DI.RAD.S_ITS ---
PROCEDURE: PAIN L/S FACET INJ/BLK 1ST [facility] COMPARISON: [facility], , PAIN L/S FACET INJ/BLK 1ST [facility], 11/19/2020, 14:58. INDICATIONS: SPONDYLOSIS FINDINGS: Fluoroscopic spot filming was performed to verify placement of spinal needles on both sides at the L4, L5, and S1 levels, as labeled on the films. Appropriate location of the needle tips was confirmed by injection of iodinated contrast. IMPRESSION: No significant intraprocedural abnormality. Dictated by: Casey Ray M.D. on 02/11/2021 at 11:20 Approved by: Casey Ray M.D. on 02/11/2021 at 11:20
[2021-02-11] MEDS: fentaNYL 100 MCG/2 ML INJ 50 MCG IV (11:40)
[2021-02-11] MEDS: MIDAZOLAM 5 MG/5 ML VIAL IV (11:44)
[2021-02-11] MEDS: BUPIVACAINE 0.5% (PF) VIAL 5 ML INJ (11:46)
[2021-02-11] MEDS: IOPAMIDOL 15 ML VIAL 3 ML INJ (11:46)
[2021-02-11] MEDS: LIDOCAINE 1% 20 ML 10 ML INJ (11:46)
--- NOTE | 2021-02-11 12:06 | PM.PROC.IR.1 ---
Date/Time/Diagnoses Date of procedure: 02/11/21 Time of procedure: 12:06 Pre-procedure diagnosis: 1. FACET ARTHROPATHY Post-procedure diagnosis: same Procedure Notes Procedure: 1. BILATERAL- L4, L5 and S1 DIAGNOSTIC MB BLOCKS with LA Anesthetic Indications: Holly is referred by Dr. Walker for treatment of Bilateral Axial LBP. Physician: Maurice Schroeder Total Fluoroscopy time (seconds): 11 Total sedation minutes: 17 Complications: none Procedure in detail & Post-procedure care: DESCRIPTION OF PROCEDURE Fluoroscopically guided, contrast-controlled bilateral L4, L5 and S1 medial branch blocks with 0.5cc of 0.5% Marcaine. Following review of allergy and review of potential side effects and complications, including, but not necessarily limited to, infection, allergic reaction, local tissue breakdown, nerve injury, paralysis, stroke and possible , the patient indicated that the patient understood and agreed to proceed. An informed consent document was signed by the patient, witnessed by a nurse, and placed in the patient's chart. After review of previous anaesthesic history and IV conscious sedation the patient was deemed safe to proceed with today's procedure with IV conscious sedation as ASA class II designation. Safety time-out was performed to confirm patient ID, procedure to be performed and site of procedure. IV sedation was accomplished with a combination of 3mg of Versed and 50mcg of Fentanyl was administered by the RN after DO order, titrated to patient comfort during the course of the procedure while the patient remained responsive to all verbal commands In the prone position, following sterile prep and drape of the lumbar region, the right L4, L5 and S1 anatomical location of the medial branch of the dorsal ramus was identified fluoroscopically. Subsequently an anesthetic skin wheal using 1% lidocaine solution was initiated at each of the anatomical spots. Subsequently then a 22-gauge 3.5-inch spinal needle was atraumatically introduced and advanced under fluoroscopic guidance at each of the corresponding sites at the right L4, L5 and S1 MB. After negative aspiration, 0.2cc of Isovue 200 was injected, confirming placement without vascular or intrathecal uptake. Subsequently then 0.5cc of 0.5% Marcaine solution was injected at each of the corresponding sites at the right L4, L5 and S1 medial branch locations. The identical procedure was replicated on the left. The patient tolerated the procedure well without signs or symptoms of complications prior to transfer to the recovery area continued monitoring without incident. Post-procedure, the patient was monitored initiating provocative activities to measure the amount of relief from block of the facetogenic pain. The patient reported a VAS of 7 prior to the procedure and a post-procedure VAS of 1. It has been a pleasure to assist in the diagnostic and therapeutic care of your patient. POST OP INSTRUCTIONS The patient was provided with a Pain Log to complete over the next several hours and subsequent days prior to the patient's follow up with the ordering physician. If the patient has technical customer support specialist relief to the solution applied, then they may be a candidate for medial branch rhizotomy. The patient is aware, was provided, once again, with a Pain Log and will follow up with the referring physician for review and clinical correlation
== END 2021-02-11 12:17 | disposition home or self-care (01) ==
LOC: RAD 10:45
PROVIDERS: PCP Family Medicine; Referring Provider Physical Medicine & Rehabilitation; Visit Provider Physical Medicine & Rehabilitation
DX: M47.817 Spondylosis without myelopathy or radiculopathy, lumbosacral region (principal); M47.816 Spondylosis without myelopathy or radiculopathy, lumbar region; M54.59 Other low back pain
CPT/HCPCS: 64493; 64494; 99152; J2250; J3010

== ENCOUNTER → 2021-03-02 13:18 | Outpatient (CLI) | payer MEDICARE, OTHER, SELFPAY ==
[2021-03-02 14:52] LABS: COVID19 -Nasal RAPID Negative (Negative)
== END ==
PROVIDERS: PCP Family Medicine; Visit Provider Physical Medicine & Rehabilitation
DX: Z20.822 Contact with and (suspected) exposure to COVID-19 (principal)
CPT/HCPCS: 87635; C9803

== ENCOUNTER 2021-03-04 07:19 | Outpatient (CLI) | payer MEDICARE, OTHER, SELFPAY ==
[2021-03-04] VITALS (11 sets, daily range): BP systolic 112–172; BP diastolic 55–92; PULSE 66–74; RESP 16–20; TEMP 36.7; O2SAT 95–98
--- NOTE | 2021-03-04 07:26 | DI.RAD.S_ITS ---
PROCEDURE: PAIN L/S MED/LAT N RFA BILAT INDICATIONS: SPONDYLOSIS COMPARISON: [facility], , PAIN L/S FACET INJ/BLK 1ST [facility], 02/11/2021, 11:46. FINDINGS: Fluoroscopic spot filming was performed to verify placement of spinal on both sides at the L4, L5, and S1 levels, as labeled on the films. Appropriate location(s) of the needle tip(s) was confirmed by injection of iodinated contrast. IMPRESSION: Intraprocedural examination within normal limits. Dictated by: Casey Ray M.D. on 03/04/2021 at 8:32 Approved by: Casey Ray M.D. on 03/04/2021 at 8:33
[2021-03-04] MEDS: MIDAZOLAM 5 MG/5 ML VIAL IV (08:25)
[2021-03-04] MEDS: fentaNYL 100 MCG/2 ML INJ 50 MCG IV (08:25)
[2021-03-04] MEDS: LIDOCAINE 1% 20 ML (08:30)
--- NOTE | 2021-03-04 09:07 | P.PCN_ITS ---
Date/Time/Diagnoses Date of procedure: 03/04/21 Time of procedure: 09:07 Pre-procedure diagnosis: 1. RECALCITRANT FACET ARTHROPATHY Post-procedure diagnosis: same Procedure Notes Procedure: 1. BILATERAL L4 AND L5 MEDIAL BRANCH RADIOFREQUENCY NEUROTOMY AND S1 DORSAL RAMUS BRANCH RADIOFREQUENCY NEUROTOMY Indications: Holly is referred by Dr. Walker for treatment of facet arthropathy. Physician: Maurice Schroeder Total Fluoroscopy time (seconds): 24 Total sedation minutes: 35 Complications: none Procedure in detail & Post-procedure care: DESCRIPTION OF PROCEDURE Bilateral L4 and L5 medial branch radiofrequency neurotomy and bilateral S1 dorsal ramus radiofrequency neurotomy under fluoroscopy with conscious sedation. The patient is well known to this clinic having undergone previous facet injections with good but temporary relief. The patient has experienced appropriate, concordant relief with previous facet and median branch blocks but the patient's pain has been recalcitrant to further conservative measures. Therefore, based upon the patient's relief and persistent symptoms, the patient is considered an appropriate candidate for facet rhizotomy. All of the patient's questions regarding the risks versus benefits of the procedure, including, but not limited to, bleeding, infection, temporary as well as lasting nerve injury, paralysis, stroke, and , as well treatment alternatives were answered to satisfaction. After obtaining informed consent, denial of pertinent drug allergies, as well as being made aware of the potential risks of bleeding, infection, spinal cord trauma, paralysis, temporary and permanent nerve damage, seizure, stroke, and possible , the patient was brought to the fluoroscopy suite and positioned prone on the fluoroscopy table. The lumbar region was prepped with Betadine and covered with a fenestrated drape in the usual sterile fashion. Appropriate monitors applied including pulse oximeter, pulse, and blood pressure for regular monitoring throughout the procedure. After review of previous anaesthesic history and IV conscious sedation the patient was deemed safe to proceed with today's procedure with IV conscious sedation as ASA class II designation. Safety time-out was performed to confirm patient ID, procedure to be performed and site of procedure. IV sedation was accomplished with a combination of 4mg of Versed and 50mcg of Fentanyl a dministered by the RN after DO order, titrated to patient comfort during the course of the procedure while the patient remained responsive to all verbal commands. After local infiltration using 1% lidocaine, under fluoroscopic guidance, a 10- cm RF insulated needle with a 10-mm active tip was positioned parallel to the junction of the right sacral ala and the superior articulating process where the S1 dorsal ramus resides. Needle placement was confirmed with motor stimulation of .5v on the right which produced local stimulation without radicular component. The stimulation was then increased to 2v with, once again, only local multifidus stimulation without radicular component. The needle was then removed and the identical procedure was performed along the length of the right L5 medial branch with motor stimulation at .7v on the right. The identical procedure was once again performed along the length of the right L4 medial branch with motor stimulation of .5v on the right. The medial branches were then anesthetised with 0.5% Marcaine. This was then followed by two discreet lesions performed at 80 degrees Celsius for 90 seconds each. The identical procedure was repeated on the left. The patient tolerated the procedure well without signs or symptoms of complications prior to transfer to the recovery area continued monitoring without incident. The patient was then transferred to the recovery area where they were observed for an appropriate period of time after the injection. The patient reported a VAS score of 9 prior to the procedure and a post-procedure VAS of 0. POST OP INSTRUCTIONS The patient was provided a Pain Log to continue to record the patient's response to the target-specific procedure prior to the patient's follow-up visit with the referring physician. Additionally, specific post-injection care instructions and a contact number to our office were provided if concerns arise regarding possible complications associated with the procedure are suspected.
[2021-03-04] MEDS: BUPIVACAINE 0.5% (PF) VIAL 30 ML (09:24)
== END 2021-03-04 09:21 | disposition home or self-care (01) ==
LOC: RAD 07:20
PROVIDERS: PCP Family Medicine; Referring Provider Physical Medicine & Rehabilitation; Visit Provider Physical Medicine & Rehabilitation
DX: M47.817 Spondylosis without myelopathy or radiculopathy, lumbosacral region (principal); M47.816 Spondylosis without myelopathy or radiculopathy, lumbar region
CPT/HCPCS: 64635; 64636; 99152; 99153; J2250; J3010

== ENCOUNTER → 2021-05-04 13:47 | Outpatient (CLI) | payer MEDICARE, OTHER, SELFPAY ==
[2021-05-04 16:53] LABS: COVID19 -Nasal RAPID Negative (Negative)
== END ==
PROVIDERS: PCP Family Medicine; Visit Provider Physical Medicine & Rehabilitation
DX: Z20.822 Contact with and (suspected) exposure to COVID-19 (principal)
CPT/HCPCS: 87635; C9803

== ENCOUNTER 2021-05-06 12:56 | Outpatient (CLI) | payer MEDICARE, OTHER, SELFPAY ==
[2021-05-06] VITALS (8 sets, daily range): BP systolic 135–180; BP diastolic 60–74; PULSE 66–69; RESP 18–23; O2SAT 95–99
--- NOTE | 2021-05-06 12:58 | DI.RAD.S_ITS ---
PROCEDURE: PAIN L/S TRANSFORAMINAL INJECT INDICATIONS: SPONDYLOSIS COMPARISON: [facility], , PAIN L/S TRANSFORAMINAL INJECT, 06/16/2020, 10:40. FINDINGS: Fluoroscopic spot filming was performed to verify placement of a spinal needle at the L4-L5 level, as labeled on the films. Appropriate location of the needle tip was confirmed by injection of iodinated contrast. IMPRESSION: Intraprocedural examination within normal limits. Dictated by: Casey Ray M.D. on 05/06/2021 at 13:21 Approved by: Casey Ray M.D. on 05/06/2021 at 13:21
[2021-05-06] MEDS: fentaNYL 100 MCG/2 ML INJ 50 MCG IV (13:32)
[2021-05-06] MEDS: MIDAZOLAM 5 MG/5 ML VIAL IV (13:32)
[2021-05-06] MEDS: IOPAMIDOL 15 ML VIAL 3 ML INJ (13:35)
[2021-05-06] MEDS: BETAMETHASONE 30 MG/5 ML MDV 6 MG INJ (13:35)
[2021-05-06] MEDS: DEXAMETHASONE 10 MG/ML VIAL 20 MG INJ (13:35)
[2021-05-06] MEDS: BUPIVACAINE 0.25% (PF) VIAL 2 ML INJ (13:35)
--- NOTE | 2021-05-06 13:46 | P.PCN_ITS ---
Date/Time/Diagnoses Date of procedure: 05/06/21 Time of procedure: 13:46 Pre-procedure diagnosis: 1. FORAMINAL STENOSIS WITH LE SYMPTOMS Post-procedure diagnosis: same Procedure Notes Procedure: 1. FLUOROSCOPICALLY GUIDED CONTRAST CONTROLLED TRANSFORAMINAL EPIDURAL STEROID INJECTION - RIGHT L4/5 TFESI Indications: Holly is referred by Dr. Walker for treatment of Foraminal Stenosis with Right LE Symptoms Physician: Maurice Schroeder Total Fluoroscopy time (seconds): 12 Total sedation minutes: 10 Complications: none Procedure in detail & Post-procedure care: FINDINGS Foraminal Nerve Root Compression secondary to disc disease and facet hypertrophy DESCRIPTION OF PROCEDURE Following review of allergy and review of potential side effects and complications, including, but not necessarily limited to, infection, allergic reaction, local tissue breakdown, stroke, temporary or permanent nerve injury, paralysis, and possible , the patient indicated that the patient understood and agreed to proceed. An informed consent document was signed by the patient, witnessed by a nurse, and placed in the patient's chart. Additionally, other treatment options including medications, modalities, and physical therapy were reviewed with the patient. After review of previous anaesthesic history and IV conscious sedation the patient was deemed safe to proceed with today?s procedure with IV conscious sedation as ASA class II designation. Safety time-out was performed to confirm patient ID, procedure to be performed and site of procedure. IV sedation was accomplished with a combination of 2mg of Versed and 50mcg of Fentanyl was administered by the RN after DO order, titrated to patient comfort during the course of the procedure while the patient remained responsive to all verbal commands In the prone position following sterile prep and drape of the lumbar region, the right L4/5 posterior neuroforamen was identified fluoroscopically. The skin was anesthetized via a 25-gauge 1.5-inch needle with 1% lidocaine solution. At this point, a 22-gauge 5-inch spinal needle was atraumatically introduced and advanced under fluoroscopic guidance through the posterior right L4/5 n euroforamen to approximately the anterior aspect of the canal. Depth was confirmed on lateral view. Following negative aspiration, injection of approximately 1.5cc of Isovue 200 under live fluoroscopy in the AP view confirmed excellent flow along the nerve root, into the epidural space without vascular or intrathecal uptake observed Radiological data, including multiple fluoroscopic views of the lumbosacral spine, reveal a spinal needle at the right L4/5 posterior neuroforamen. Subsequent views show flow of contrast material flowing superiorly and inferiorly along the nerve root confirming epidural flow. Subsequently, a test dose of 1.5 cc of 1% lidocaine solution was administered and patient was observed for two minutes for signs or symptoms of complications, including abdominal pain, shortness of breath, bilateral upper or lower extremity weakness, nausea and vomiting, prior to steroid injection. At this point, a total of 3cc or 20mg of dexamethasone and 6mg of betamethasone was injected without incident. The procedure tolerated the procedure well without signs or symptoms of complications prior to transfer to the recovery area continued monitoring without incident. The patient was then transferred to the recovery area where they were observed for an appropriate time after the injection. The patient reported a VAS score of 7 prior to the procedure and a post-p rocedure VAS of 0. POST OP INSTRUCTIONS The patient was provided a Pain Log to continue to record their response to the target-specific procedure prior to follow-up visit with their referring physician. Additionally, specific post-injection care instructions and a contact number to our office were provided if concerns arise regarding possible complications associated with the procedure are suspected.
== END 2021-05-06 14:06 | disposition home or self-care (01) ==
LOC: RAD 12:58
PROVIDERS: PCP Family Medicine; Referring Provider Physical Medicine & Rehabilitation; Visit Provider Physical Medicine & Rehabilitation
DX: M48.061 Spinal stenosis, lumbar region without neurogenic claudication (principal); M51.16 Intervertebral disc disorders with radiculopathy, lumbar region
CPT/HCPCS: 64483; 99152; J0702; J1100; J2250; J3010

== ENCOUNTER → 2021-07-06 12:57 | Outpatient (CLI) | payer MEDICARE, OTHER, SELFPAY ==
[2021-07-06 15:25] LABS: COVID19 -Nasal RAPID Negative (Negative)
== END ==
PROVIDERS: PCP Family Medicine; Visit Provider Physical Medicine & Rehabilitation
DX: Z20.822 Contact with and (suspected) exposure to COVID-19 (principal)
CPT/HCPCS: 87635; C9803

== ENCOUNTER 2021-07-08 09:40 | Outpatient (CLI) | payer MEDICARE, OTHER, SELFPAY ==
[2021-07-08] VITALS (9 sets, daily range): BP systolic 113–138; BP diastolic 57–85; PULSE 67–77; RESP 16–22; TEMP 36.2; O2SAT 94–100
--- NOTE | 2021-07-08 09:42 | DI.RAD.S_ITS ---
PROCEDURE: PAIN L INTERLAMINAR/CAUDAL INJ INDICATIONS: Spondylosis COMPARISON: None. FINDINGS: Fluoroscopic spot filming was performed to verify placement of spinal needles at the L4-5 level(s), as labeled on the films. Appropriate location(s) of the needle tip(s) was confirmed by injection of iodinated contrast. IMPRESSION: Fluoro guidance was provided intraoperatively for L4-5 translaminar epidural steroid injection performed by the ordering physician. Dictated by: Alli Elizondo M.D. on 07/08/2021 at 11:07 Approved by: Alli Eliozndo M.D. on 07/08/2021 at 11:08
[2021-07-08] MEDS: fentaNYL 100 MCG/2 ML INJ (10:33)
[2021-07-08] MEDS: MIDAZOLAM 2 MG/2 ML VIAL IV (10:34)
[2021-07-08] MEDS: DEXAMETHASONE 10 MG/ML VIAL 20 MG INJ (10:34)
[2021-07-08] MEDS: BUPIVACAINE 0.25% (PF) VIAL 2 ML INJ (10:34)
[2021-07-08] MEDS: BETAMETHASONE 30 MG/5 ML MDV 6 MG INJ (10:34)
[2021-07-08] MEDS: IOPAMIDOL 15 ML VIAL 3 ML INJ (10:35)
--- NOTE | 2021-07-08 10:39 | P.PCN_ITS ---
Date/Time/Diagnoses Date of procedure: 07/08/21 Time of procedure: 10:40 Pre-procedure diagnosis: 1. HNP WITH RADICULAR FEATURES, 2. MULTILEVEL CENTRAL STENOSIS, Post-procedure diagnosis: same Procedure Notes Procedure: 1. FLUOROSCOPICALLY GUIDED CONTRAST CONTROLLED INTERLAMINAR EPIDURAL STEROID INJECTION -L4/5 Indications: Holly is referred by Dr. Walker for treatment of Bilateral Foraminal Stenosis R>L LE symptoms. Physician: Maurice Schroeder Total Fluoroscopy time (seconds): 6 Total sedation minutes: 9 Complications: none Procedure in detail & Post-procedure care: FINDINGS Multilevel Central Spinal Stenosis with Nerve Root Compression DESCRIPTION OF PROCEDURE Fluoroscopically guided, contrast-controlled L4/5 translaminar epidural steroid injection. Following review of allergy and review of potential side effects and complications, including, but not necessarily limited to, infection, allergic reaction, local tissue breakdown, temporary as well as permanent nerve injury, paralysis, stroke and possible , the patient indicated that the patient understood and agreed to proceed. An informed consent document was signed by the patient, witnessed by a nurse, and placed in the patient's chart. Additionally, other treatment options including modalities, medications, and physical therapy were reviewed with the patient. After review of previous anaesthesic history and IV conscious sedation the patient was deemed safe to proceed with today?s procedure with IV conscious sedation as ASA class II designation. Safety time-out was performed to confirm patient ID, procedure to be performed and site of procedure. IV sedation was accomplished with a combination of 2mg of Versed and 50mcg of Fentanyl was administered by the RN after DO order, titrated to patient comfort during the course of the procedure while the patient remained responsive to all verbal commands In the prone position, following sterile prep and drape of the lumbar region, the L4/5 translaminar space was identified fluoroscopically. The skin was anesthetized via a 25-gauge, 1.5inch needle with 1% lidocaine solution. At this point, a 22-gauge short bevel spinal needle was atraumatically introduced and advanced under fluoroscopic guidance into the region of the L4/5 translaminar space. Depth was confirmed on lateral view. Radiological data, including multiple fluoroscopic views of the lumbar spine, reveal a spinal needle at the L4/5 translaminar space. Lateral views then show placement of the needle in the epidural space. Subsequent views show contrast material flowing superiorly and inferiorly in the epidural space. No vascular or intrathecal uptake is observed. At this point, using loss of resistance technique with saline and air, the epidural space was entered. This was confirmed following negative aspiration with injection of approximately 1.5cc of Isovue 200, showing excellent epidural flow without vascular or intrathecal uptake. At this point, 1cc of 1% lidocaine solution combined with 3cc or 20mg of dexamethasone and 6mg betamethasone was injected without incident. The patient tolerated the procedure well without signs or symptoms of complica tions prior to transfer to the recovery area continued monitoring without incident. The patient was then transferred to the recovery area where they were observed for an appropriate period of time after the injection. The patient reported a VAS score of 6 prior to the procedure and a post- procedure VAS of 0. POST OP INSTRUCTIONS The patient was provided a Pain Log to continue to record their response to the target-specific procedure prior to follow-up visit with their referring physician. Additionally, specific post-injection care instructions and a contact number to our office were provided if concerns arise regarding possible complications associated with the procedure are suspected.
--- NOTE | 2021-07-08 10:48 | PC.NURSE ---
Shortly after arrival from procedure room this RN witnessed a 7 beat run of Vtach, self limiting. Patient is asymptomatic and hemodynamically stable. BP 124/61 (86). HR 70's SR SP02 96%. Patient denies complaints and is talkative to staff. Dr. Schroeder made aware.
== END 2021-07-08 11:06 | disposition home or self-care (01) ==
LOC: RAD 09:41
PROVIDERS: PCP Family Medicine; Referring Provider Physical Medicine & Rehabilitation; Visit Provider Physical Medicine & Rehabilitation
DX: M48.062 Spinal stenosis, lumbar region with neurogenic claudication (principal); M51.16 Intervertebral disc disorders with radiculopathy, lumbar region
CPT/HCPCS: 62323; J0702; J1100; J2250; J3010

== ENCOUNTER 2022-01-25 13:45 | Outpatient (CLI) | payer MEDICARE, OTHER, SELFPAY ==
[2022-01-25] VITALS (8 sets, daily range): BP systolic 158–198; BP diastolic 71–96; PULSE 71–85; RESP 16–20; TEMP 36.3; O2SAT 97–100
--- NOTE | 2022-01-25 13:46 | DI.RAD.S_ITS ---
PROCEDURE: PAIN L INTERLAMINAR/CAUDAL INJ INDICATIONS: SPONDYLOSIS COMPARISON: [facility], XA, PAIN L INTERLAMINAR/CAUDAL INJ, 07/08/2021, 10:31. FINDINGS: Fluoroscopic spot filming was performed to verify placement of spinal needles at the L4-5 level(s), as labeled on the films. Appropriate location(s) of the needle tip(s) was confirmed by injection of iodinated contrast. IMPRESSION: Fluoroscopic guidance Approved by: Jakob Tello M.D. on 01/25/2022 at 16:21
[2022-01-25] MEDS: MIDAZOLAM 2 MG/2 ML VIAL IV (14:33)
[2022-01-25] MEDS: BUPIVACAINE 0.25% (PF) VIAL 2 ML INJ (14:39)
[2022-01-25] MEDS: IOPAMIDOL 15 ML VIAL 3 ML INJ (14:39)
[2022-01-25] MEDS: BETAMETHASONE 30 MG/5 ML MDV 6 MG INJ (14:39)
[2022-01-25] MEDS: DEXAMETHASONE 10 MG/ML VIAL 20 MG INJ (14:39)
--- NOTE | 2022-01-25 14:51 | P.PCN_ITS ---
Date/Time/Diagnoses Date of procedure: 01/25/22 Time of procedure: 14:51 Pre-procedure diagnosis: 1. HNP WITH RADICULAR FEATURES, 2. MULTILEVEL CENTRAL STENOSIS, Post-procedure diagnosis: same Procedure Notes Procedure: 1. FLUOROSCOPICALLY GUIDED CONTRAST CONTROLLED INTERLAMINAR EPIDURAL STEROID INJECTION -L4/5 Indications: Holly is referred by Dr. Walker for treatment of Bilateral Foraminal Stenosis R>L LE symptoms. Physician: Maurice Schroeder Total Fluoroscopy time (seconds): 9 Total sedation minutes: 11 Complications: none Procedure in detail & Post-procedure care: FINDINGS Multilevel Central Spinal Stenosis with Nerve Root Compression DESCRIPTION OF PROCEDURE Fluoroscopically guided, contrast-controlled L4/5 translaminar epidural steroid injection. Following review of allergy and review of potential side effects and complications, including, but not necessarily limited to, infection, allergic reaction, local tissue breakdown, temporary as well as permanent nerve injury, paralysis, stroke and possible , the patient indicated that the patient understood and agreed to proceed. An informed consent document was signed by the patient, witnessed by a nurse, and placed in the patient's chart. Additionally, other treatment options including modalities, medications, and physical therapy were reviewed with the patient. After review of previous anaesthesic history and IV conscious sedation the patient was deemed safe to proceed with today?s procedure with IV conscious sedation as ASA class II designation. Safety time-out was performed to confirm patient ID, procedure to be performed and site of procedure. IV sedation was accomplished with a combination of 2mg of Versed was administered by the RN after DO order, titrated to patient comfort during the course of the procedure while the patient remained responsive to all verbal commands In the prone position, following sterile prep and drape of the lumbar region, the L4/5 translaminar space was identified fluoroscopically. The skin was anesthetized via a 25-gauge, 1.5inch needle with 1% lidocaine solution. At this point, a 22-gauge short bevel spinal needle was atraumatically introduced and a dvanced under fluoroscopic guidance into the region of the L4/5 translaminar space. Depth was confirmed on lateral view. Radiological data, including multiple fluoroscopic views of the lumbar spine, reveal a spinal needle at the L4/5 translaminar space. Lateral views then show placement of the needle in the epidural space. Subsequent views show contrast material flowing superiorly and inferiorly in the epidural space. No vascular or intrathecal uptake is observed. At this point, using loss of resistance technique with saline and air, the epidural space was entered. This was confirmed following negative aspiration with injection of approximately 1.5cc of Isovue 200, showing excellent epidural flow without vascular or intrathecal uptake. At this point, 1cc of 1% lidocaine solution combined with 3cc or 20mg of dexamethasone and 6mg betamethasone was injected without incident. The patient tolerated the procedure well without signs or symptoms of complications prior to transfer to the recovery area continued monitoring without incident. The patient was then transferred to the recovery area where they were observed for an appropriate period of time after the injection. The patient reported a VAS score of 6 prior to the procedure and a post- procedure VAS of 0. POST OP INSTRUCTIONS The patient was provided a Pain Log to continue to record their response to the target-specific procedure prior to follow-up visit with their referring physician. Additionally, specific post-injection care instructions and a contact number to our office were provided if concerns arise regarding possible complications associated with the procedure are suspected.
== END 2022-01-25 15:12 | disposition home or self-care (01) ==
LOC: RAD 13:46
PROVIDERS: PCP Family Medicine; Referring Provider Physical Medicine & Rehabilitation; Visit Provider Physical Medicine & Rehabilitation
DX: M48.062 Spinal stenosis, lumbar region with neurogenic claudication (principal); M51.16 Intervertebral disc disorders with radiculopathy, lumbar region
CPT/HCPCS: 62323; 99152; J0702; J1100; J2250; J3490

== ENCOUNTER → 2022-10-17 15:23 | Outpatient (CLI) | payer MEDICARE, OTHER, SELFPAY ==
--- NOTE | 2022-10-17 15:26 | DI.RAD.S_ITS ---
PROCEDURE: XR SHOULDER LT MIN 2V INDICATIONS: shoulder djd TECHNIQUE: 3 views of the shoulder were acquired. COMPARISON: [facility], , SHOULDER MIN 2VW (LT), 02/10/2014, 17:11. [facility], CR, SHOULDER MIN 2VW (LT), 11/01/2013, 13:01. FINDINGS: Bones: No fractures or dislocations. No suspicious bony lesions. Mild osteoarthritic changes in acromioclavicular and glenohumeral joint. No bony erosion. Possible old healed distal clavicular shaft fracture. Visualized ribs appear intact. Soft tissues: No suspicious soft tissue calcifications. IMPRESSION: Mild osteoarthritic changes. Dictated by: Ric Cuello M.D. on 10/18/2022 at 13:37 Approved by: Ric Cuello M.D. on 10/18/2022 at 13:39
--- NOTE | 2022-10-17 15:26 | DI.RAD.S_ITS ---
PROCEDURE: XR SHOULDER RT MIN 2V INDICATIONS: shoulder djd TECHNIQUE: 3 views of the shoulder were acquired. COMPARISON: None. FINDINGS: Bones: No fractures or dislocations. No suspicious bony lesions. Moderate acromioclavicular and glenohumeral joint degeneration. Visualized ribs appear intact. Soft tissues: No suspicious soft tissue calcifications. IMPRESSION: Moderate degenerative joint disease. Dictated by: Ric Cuello M.D. on 10/18/2022 at 13:20 Approved by: Ric Cuello M.D. on 10/18/2022 at 13:32
--- NOTE | 2022-10-17 15:26 | DI.RAD.S_ITS ---
PROCEDURE: XR HIP W PEL IF DONE CHRISTIAN MIN 4V INDICATIONS: left hip glut tear TECHNIQUE: AP pelvis with lateral view(s) of the right hip(s). COMPARISON: None. FINDINGS: Bones: No fractures or dislocations. Pelvic ring appears intact. No suspicious bony lesions. Moderate hip and sacroiliac joint degeneration bilaterally. Soft tissues: The visualized bowel gas pattern is normal. No suspicious soft tissue calcifications. IMPRESSION: Moderate degenerative joint disease. Dictated by: Ric Cuello M.D. on 10/18/2022 at 13:47 Approved by: Ric Cuello M.D. on 10/18/2022 at 13:48
== END ==
PROVIDERS: PCP Family Medicine; Referring Provider Physical Medicine & Rehabilitation; Visit Provider Physical Medicine & Rehabilitation
DX: M75.41 Impingement syndrome of right shoulder (principal); M19.011 Primary osteoarthritis, right shoulder; M70.62 Trochanteric bursitis, left hip; M16.0 Bilateral primary osteoarthritis of hip; M46.1 Sacroiliitis, not elsewhere classified; M41.25 Other idiopathic scoliosis, thoracolumbar region; M47.27 Other spondylosis with radiculopathy, lumbosacral region; M17.12 Unilateral primary osteoarthritis, left knee; H35.3130 Nonexudative age-related macular degeneration, bilateral, stage unspecified; Z96.21 Cochlear implant status
CPT/HCPCS: 73030; 73522; 99214

== ENCOUNTER 2023-01-24 12:53 | Outpatient (CLI) | payer MEDICARE, OTHER, SELFPAY ==
[2023-01-24] VITALS (9 sets, daily range): BP systolic 134–178; BP diastolic 57–81; PULSE 69–78; RESP 15–25; TEMP 36.6; O2SAT 97–99
--- NOTE | 2023-01-24 12:57 | DI.RAD.S_ITS ---
PROCEDURE: PAIN L INTERLAMINAR/CAUDAL INJ INDICATIONS: SPONDYLOSIS COMPARISON: [facility], XA, PAIN L INTERLAMINAR/CAUDAL INJ, 01/25/2022, 14:37. FINDINGS: Fluoroscopic spot filming was performed to verify placement of spinal needles at the L4-L5 internal level(s), as labeled on the films. Appropriate location(s) of the needle tip(s) was confirmed by injection of iodinated contrast. IMPRESSION: Access needle at the L4-L5 interlaminar space for translaminar epidural steroid injection. Dictated by: Abby Hussein MD, PhD on 01/24/2023 at 14:24 Approved by: Abby Hussein MD, PhD on 01/24/2023 at 14:26
[2023-01-24] MEDS: MIDAZOLAM 2 MG/2 ML VIAL IV (13:49)
[2023-01-24] MEDS: BETAMETHASONE 30 MG/5 ML MDV 6 MG INJ (13:56)
[2023-01-24] MEDS: BUPIVACAINE 0.25% (PF) VIAL 2 ML INJ (13:56)
[2023-01-24] MEDS: DEXAMETHASONE 10 MG/ML VIAL INJ (13:57)
[2023-01-24] MEDS: iopamidoL 15 ML VIAL 3 ML INJ (13:57)
--- NOTE | 2023-01-24 14:04 | P.PCN_ITS ---
Date/Time/Diagnoses Date of procedure: 01/24/23 Time of procedure: 14:04 Pre-procedure diagnosis: 1. HNP WITH RADICULAR FEATURES, 2. MULTILEVEL CENTRAL STENOSIS, Post-procedure diagnosis: same Procedure Notes Procedure: 1. FLUOROSCOPICALLY GUIDED CONTRAST CONTROLLED INTERLAMINAR EPIDURAL STEROID INJECTION -L4/5 Indications: Holly is referred by Dr. Walker for treatment of Bilateral Foraminal Stenosis R>L LE symptoms. Physician: Maurice Schroeder Total Fluoroscopy time (seconds): 5 Total sedation minutes: 10 Complications: none Procedure in detail & Post-procedure care: FINDINGS Multilevel Central Spinal Stenosis with Nerve Root Compression DESCRIPTION OF PROCEDURE Fluoroscopically guided, contrast-controlled L4/5 translaminar epidural steroid injection. Following review of allergy and review of potential side effects and complications, including, but not necessarily limited to, infection, allergic reaction, local tissue breakdown, temporary as well as permanent nerve injury, paralysis, stroke and possible , the patient indicated that the patient understood and agreed to proceed. An informed consent document was signed by the patient, witnessed by a nurse, and placed in the patient's chart. Additionally, other treatment options including modalities, medications, and physical therapy were reviewed with the patient. After review of previous anaesthesic history and IV conscious sedation the patient was deemed safe to proceed with today?s procedure with IV conscious sedation as ASA class II designation. Safety time-out was performed to confirm patient ID, procedure to be performed and site of procedure. IV sedation was accomplished with a combination of 2mg of Versed was administered by the RN after DO order, titrated to patient comfort during the course of the procedure while the patient remained responsive to all verbal commands In the prone position, following sterile prep and drape of the lumbar region, the L4/5 translaminar space was identified fluoroscopically. The skin was anesthetized via a 25-gauge, 1.5inch needle with 1% lidocaine solution. At this point, a 22-gauge short bevel spinal needle was atraumatically introduced and a dvanced under fluoroscopic guidance into the region of the L4/5 translaminar space. Depth was confirmed on lateral view. Radiological data, including multiple fluoroscopic views of the lumbar spine, reveal a spinal needle at the L4/5 translaminar space. Lateral views then show placement of the needle in the epidural space. Subsequent views show contrast material flowing superiorly and inferiorly in the epidural space. No vascular or intrathecal uptake is observed. At this point, using loss of resistance technique with saline and air, the epidural space was entered. This was confirmed following negative aspiration with injection of approximately 1.5cc of Isovue 200, showing excellent epidural flow without vascular or intrathecal uptake. At this point, 1cc of 1% lidocaine solution combined with 2cc or 10mg of dexamethasone and 6mg betamethasone was injected without incident. The patient tolerated the procedure well without signs or symptoms of complications prior to transfer to the recovery area continued monitoring without incident. The patient was then transferred to the recovery area where they were observed for an appropriate period of time after the injection. The patient reported a VAS score of 10 prior to the procedure and a post- procedure VAS of 1. POST OP INSTRUCTIONS The patient was provided a Pain Log to continue to record their response to the target-specific procedure prior to follow-up visit with their referring physician. Additionally, specific post-injection care instructions and a contact number to our office were provided if concerns arise regarding possible complications associated with the procedure are suspected.
== END 2023-01-24 14:27 | disposition home or self-care (01) ==
LOC: RAD 12:55
PROVIDERS: PCP Family Medicine; Referring Provider Physical Medicine & Rehabilitation; Visit Provider Physical Medicine & Rehabilitation
DX: M51.16 Intervertebral disc disorders with radiculopathy, lumbar region (principal); M48.061 Spinal stenosis, lumbar region without neurogenic claudication
CPT/HCPCS: 62323; 99152; J0702; J1100; J2250; J3490

== ENCOUNTER 2023-02-07 13:54 | Outpatient (CLI) | payer MEDICARE, OTHER, SELFPAY ==
[2023-02-07] VITALS (9 sets, daily range): BP systolic 131–171; BP diastolic 61–96; PULSE 70–80; RESP 16–24; TEMP 36.4; O2SAT 95–100
--- NOTE | 2023-02-07 13:56 | DI.RAD.S_ITS ---
PROCEDURE: PAIN L/S TRANSFORAMINAL INJECT INDICATIONS: SPONDYLOSIS COMPARISON: [facility], , PAIN L/S TRANSFORAMINAL INJECT, 05/06/2021, 14:35. FINDINGS: Fluoroscopic spot filming was performed to verify placement of spinal needles at the L4-5 level(s), as labeled on the films. Appropriate location(s) of the needle tip(s) was confirmed by injection of iodinated contrast. IMPRESSION: Fluoroscopic guidance utilized for an L4-5 injection. Dictated by: Glynn Shaikh M.D. on 02/07/2023 at 16:19 Approved by: Glynn Shaikh M.D. on 02/07/2023 at 16:20
[2023-02-07] MEDS: MIDAZOLAM 2 MG/2 ML VIAL IV (14:48)
[2023-02-07] MEDS: iopamidoL 15 ML VIAL 3 ML INJ (14:51)
[2023-02-07] MEDS: DEXAMETHASONE 10 MG/ML VIAL INJ (14:51)
[2023-02-07] MEDS: BUPIVACAINE 0.25% (PF) VIAL 2 ML INJ (14:51)
[2023-02-07] MEDS: BETAMETHASONE 30 MG/5 ML MDV 6 MG INJ (14:52)
--- NOTE | 2023-02-07 15:08 | P.PCN_ITS ---
Date/Time/Diagnoses Date of procedure: 02/07/23 Time of procedure: 15:08 Pre-procedure diagnosis: 1. FORAMINAL STENOSIS WITH LE SYMPTOMS Post-procedure diagnosis: same Procedure Notes Procedure: 1. FLUOROSCOPICALLY GUIDED CONTRAST CONTROLLED TRANSFORAMINAL EPIDURAL STEROID INJECTION - RIGHT L4/5 TFESI Indications: Holly is referred by Dr. Walker for treatment of Foraminal Stenosis with Right LE Symptoms Physician: Maurice Schroeder Total Fluoroscopy time (seconds): 25 Total sedation minutes: 15 Complications: none Procedure in detail & Post-procedure care: FINDINGS Foraminal Nerve Root Compression secondary to disc disease and facet hypertrophy DESCRIPTION OF PROCEDURE Following review of allergy and review of potential side effects and complications, including, but not necessarily limited to, infection, allergic reaction, local tissue breakdown, stroke, temporary or permanent nerve injury, paralysis, and possible , the patient indicated that the patient understood and agreed to proceed. An informed consent document was signed by the patient, witnessed by a nurse, and placed in the patient's chart. Additionally, other treatment options including medications, modalities, and physical therapy were reviewed with the patient. After review of previous anaesthesic history and IV conscious sedation the patient was deemed safe to proceed with today?s procedure with IV conscious sedation as ASA class II designation. Safety time-out was performed to confirm patient ID, procedure to be performed and site of procedure. IV sedation was accomplished with a combination of 2mg of Versed was administered by the RN after DO order, titrated to patient comfort during the course of the procedure while the patient remained responsive to all verbal commands In the prone position following sterile prep and drape of the lumbar region, the right L4/5 posterior neuroforamen was identified fluoroscopically. The skin was anesthetized via a 25-gauge 1.5-inch needle with 1% lidocaine solution. At this point, a 25-gauge 3.5-inch spinal needle was atraumatically introduced and advanced under fluoroscopic guidance through the posterior right L4/5 neuroforamen to approximately the anterior aspect of the canal. Depth was confirmed on lateral view. Following negative aspiration, injection of approximately 1.5cc of Isovue 200 under live fluoroscopy in the AP view co nfirmed excellent flow along the nerve root, into the epidural space without vascular or intrathecal uptake observed Radiological data, including multiple fluoroscopic views of the lumbosacral spin e, reveal a spinal needle at the right L4/5 posterior neuroforamen. Subsequent views show flow of contrast material flowing superiorly and inferiorly along the nerve root confirming epidural flow. Subsequently, a test dose of 1.5 cc of 1% lidocaine solution was administered and patient was observed for two minutes for signs or symptoms of complications, including abdominal pain, shortness of breath, bilateral upper or lower extremity weakness, nausea and vomiting, prior to steroid injection. At this point, a total of 2cc or 10mg of dexamethasone and 6mg of betamethasone was injected without incident. The procedure tolerated the procedure well without signs or symptoms of complications prior to transfer to the recovery area continued monitoring without incident. The patient was then transferred to the recovery area where they were observed for an appropriate time after the injection. The patient reported a VAS score of 7 prior to the procedure and a post- procedure VAS of 0. POST OP INSTRUCTIONS The patient was provided a Pain Log to continue to record their response to the target-specific procedure prior to follow-up visit with their referring physician. Additionally, specific post-injection care instructions and a contact number to our office were provided if concerns arise regarding possible complications associated with the procedure are suspected.
== END 2023-02-07 15:31 | disposition home or self-care (01) ==
LOC: RAD 13:55
PROVIDERS: PCP Family Medicine; Referring Provider Physical Medicine & Rehabilitation; Visit Provider Physical Medicine & Rehabilitation
DX: M54.17 Radiculopathy, lumbosacral region (principal)
CPT/HCPCS: 64483; 99152; J0702; J1100; J2250; J3490

== ENCOUNTER → 2023-05-15 17:02 | Outpatient (CLI) | payer MEDICARE, OTHER, SELFPAY ==
--- NOTE | 2023-05-15 17:08 | DI.RAD.S_ITS ---
PROCEDURE: XR LUMBAR SPINE MIN 4V INDICATIONS: Left SI joint pain status post fall TECHNIQUE: 5 views of the lumbar spine were acquired, including bilateral oblique views. COMPARISON: [facility], , XR LUMBAR SPINE MIN 4V, 11/08/2018, 11:18. FINDINGS: Bones: 5 nonrib-bearing vertebrae are present. There is moderate levoscoliosis of lumbar spine with apex at L1-2 level. No vertebral body compression fractures. Degenerative endplate changes are noted throughout lumbar spine No suspicious bony lesions. Soft tissues: Overlying bowel gas pattern is normal. No suspicious soft tissue calcifications. Oblique images: No pars defects. IMPRESSION: Degenerative disc disease throughout lumbar spine. No acute compression fracture. Moderate levoscoliosis worsened since 2019 study. Dictated by: Alli Elizondo M.D. on 05/16/2023 at 12:36 Approved by: Alli Elizondo M.D. on 05/16/2023 at 12:37
== END ==
PROVIDERS: PCP Family Medicine; Referring Provider Physical Medicine & Rehabilitation; Visit Provider Physical Medicine & Rehabilitation
DX: M53.3 Sacrococcygeal disorders, not elsewhere classified (principal); M51.36 Other intervertebral disc degeneration, lumbar region; M41.9 Scoliosis, unspecified; M16.0 Bilateral primary osteoarthritis of hip; M19.011 Primary osteoarthritis, right shoulder; M19.012 Primary osteoarthritis, left shoulder; M17.12 Unilateral primary osteoarthritis, left knee; M75.41 Impingement syndrome of right shoulder; M47.27 Other spondylosis with radiculopathy, lumbosacral region; M41.25 Other idiopathic scoliosis, thoracolumbar region; Z96.21 Cochlear implant status; Z87.09 Personal history of other diseases of the respiratory system
CPT/HCPCS: 72110; 99214

== ENCOUNTER 2023-05-30 12:10 | Outpatient (CLI) | payer MEDICARE, OTHER, SELFPAY ==
[2023-05-30] VITALS (8 sets, daily range): BP systolic 127–171; BP diastolic 55–74; PULSE 67–78; RESP 16–23; TEMP 36.4; O2SAT 96–99
--- NOTE | 2023-05-30 13:00 | DI.RAD.S_ITS ---
PROCEDURE: PAIN SI JOINT INJECTION INDICATIONS: sacroilitis COMPARISON: None. FINDINGS: Fluoroscopic spot filming was performed to verify placement of spinal needles at the left sacroiliac joint , as labeled on the films. Appropriate location(s) of the needle tip(s) was confirmed by injection of iodinated contrast. IMPRESSION: Fluoro guidance was provided intraoperatively for left-sided sacroiliac joint injection performed by the ordering physician. Dictated by: Alli Elizondo M.D. on 05/30/2023 at 15:06 Approved by: Alli Elizondo M.D. on 05/30/2023 at 15:06
[2023-05-30] MEDS: MIDAZOLAM 2 MG/2 ML VIAL IV (13:20)
[2023-05-30] MEDS: BETAMETHASONE 30 MG/5 ML MDV 12 MG INJ (13:24)
[2023-05-30] MEDS: BUPIVACAINE 0.5% (PF) 10 ML VIAL 2 ML INJ (13:24)
[2023-05-30] MEDS: iopamidoL 15 ML VIAL 3 ML INJ (13:24)
--- NOTE | 2023-05-30 13:34 | PM.PROC.IR.1 ---
Date/Time/Diagnoses Date of procedure: 05/30/23 Time of procedure: 13:34 Pre-procedure diagnosis: Sacroiliac Joint Pain/DJD Post-procedure diagnosis: same Procedure Notes Procedure: Fluoroscopically guided contrast controlled left sacroiliac joint injection Indications: Holly is referred by Dr. Walker for treatment of left sacroiliac joint DJD Physician: Maurice Schroeder Total Fluoroscopy time (seconds): 10 Total sedation minutes: 10 Complications: none Procedure in detail & Post-procedure care: DESCRIPTION OF PROCEDURE Fluoroscopic guided, contrast controlled left sacroiliac joint injection Following review of allergies and review of potential side effects and complications, including, but not necessarily limited to, infection, allergic reaction, local tissue breakdown, temporary as well as permanent nerve injury, paralysis, stroke and possible , the patient indicated that they understood and agreed to proceed. An informed consent was signed by the patient, witnessed by a nurse, and placed in the patient's chart. Additionally, other treatment options including modalities, medications, and physical therapy were reviewed with the patient. After review of previous anaesthesic history and IV conscious sedation the patient was deemed safe to proceed with today?s procedure with IV conscious sedation as ASA class II designation. Safety time-out was performed to confirm patient ID, procedure to be performed and site of procedure. IV sedation was accomplished with a combination of 2mg of Versed administered by the RN after DO order, titrated to patient comfort during the course of the procedure while the patient remained responsive to all verbal commands. In the prone position following sterile prep and drape of the pelvic region, the hyper lucency on in the inferior aspect of the left sacroiliac joint was identified fluoroscopically the skin was anesthetized be a 25 gauge 1 eventual with approximately 2cc of 1% lidocaine solution. At this point, a 22 gauge 3inch spinal needle was atraumatically introduced and advanced under fluoroscopic guidance into the inferior aspect of the left sacroiliac joint. Following negative aspiration, approximately 0.3cc of Isovue-300 was injected confirming intra-articular placement without vascular uptake. Radiographic data, including multiple fluoroscopic views of the pelvis, reveals a spinal needle in the left sacroiliac joint hyper lucent zone. Subsequent view show flow contrast tear superiorly and inferiorly within the joint capsule without vascular intrathecal uptake. At this point a total of 1cc or 0.5% Marcaine was combined with 1cc of 6mg of betamethasone was injected without incident. The patient tolerated the procedure well without signs or symptoms of complications prior to transfer to the recovery area for further monitoring. The patient was then transferred to the recovery area with a bur observed for an appropriate time after the injection. The patient reverted a vas score of 7 prior to the procedure and postprocedure vas of 1. POSTOP INSTRUCTIONS The patient was provided with a pain like to continue to record the patient's response to the target specific procedure prior to the patient's follow-up visit with the referring physician. Additionally, specific post injection care instructions and a contact number to our office were provided if concerns arise regarding the possible complications associated with procedure are suspected.
== END 2023-05-30 13:57 | disposition home or self-care (01) ==
LOC: RAD 12:11
PROVIDERS: PCP Family Medicine; Referring Provider Physical Medicine & Rehabilitation; Visit Provider Physical Medicine & Rehabilitation
DX: M53.3 Sacrococcygeal disorders, not elsewhere classified (principal); M46.1 Sacroiliitis, not elsewhere classified
CPT/HCPCS: 27096; 77002; 99152; G0260; J0702; J2250

== ENCOUNTER 2023-11-28 09:18 | Outpatient (CLI) | payer MEDICARE, OTHER, SELFPAY ==
[2023-11-28] VITALS (9 sets, daily range): BP systolic 124–168; BP diastolic 58–90; PULSE 66–569; RESP 13–25; TEMP 36.3; O2SAT 96–100
--- NOTE | 2023-11-28 09:45 | DI.RAD.S_ITS ---
PROCEDURE: PAIN SI JOINT INJECTION INDICATIONS: SI JOINT DYSFUNCTION COMPARISON: [facility], XA, PAIN SI JOINT INJECTION, 05/30/2023, 14:23. FINDINGS: Fluoroscopic spot filming was performed to verify placement of needles at the left sacroiliac as labeled on the films. Appropriate location(s) of the needle tip(s) was confirmed by injection of iodinated contrast. IMPRESSION: Left sacroiliac injection. Please see operative note for full details. Dictated by: Thomas Wallis M.D. on 11/28/2023 at 14:00 Approved by: Thomas Wallis M.D. on 11/28/2023 at 14:01
[2023-11-28] MEDS: MIDAZOLAM 2 MG/2 ML VIAL 1 MG IV (10:06)
[2023-11-28] MEDS: BETAMETHASONE 30 MG/5 ML MDV 6 MG INJ (10:12)
[2023-11-28] MEDS: iopamidoL 15 ML VIAL 3 ML INJ (10:13)
[2023-11-28] MEDS: BUPIVACAINE 0.5% (PF) 10 ML VIAL 5 ML INJ (10:13)
--- NOTE | 2023-11-28 10:23 | PM.PROC.IR.1 ---
Date/Time/Diagnoses Date of procedure: 11/28/23 Time of procedure: 10:23 Pre-procedure diagnosis: Sacroiliac Joint Pain/DJD Post-procedure diagnosis: same Procedure Notes Procedure: Fluoroscopically guided contrast controlled left sacroiliac joint injection Indications: Holly is referred by Dr. Walker for treatment of left sacroiliac joint DJD Physician: Maurice Schroeder Total Fluoroscopy time (seconds): 8 Total sedation minutes: 13 Complications: none Procedure in detail & Post-procedure care: DESCRIPTION OF PROCEDURE Fluoroscopic guided, contrast controlled left sacroiliac joint injection Following review of allergies and review of potential side effects and complications, including, but not necessarily limited to, infection, allergic reaction, local tissue breakdown, temporary as well as permanent nerve injury, paralysis, stroke and possible , the patient indicated that they understood and agreed to proceed. An informed consent was signed by the patient, witnessed by a nurse, and placed in the patient's chart. Additionally, other treatment options including modalities, medications, and physical therapy were reviewed with the patient. After review of previous anaesthesic history and IV conscious sedation the patient was deemed safe to proceed with today?s procedure with IV conscious sedation as ASA class II designation. Safety time-out was performed to confirm patient ID, procedure to be performed and site of procedure. IV sedation was accomplished with a combination of 1mg of Versed administered by the RN after DO order, titrated to patient comfort during the course of the procedure while the patient remained responsive to all verbal commands. In the prone position following sterile prep and drape of the pelvic region, the hyper lucency on in the inferior aspect of the left sacroiliac joint was identified fluoroscopically the skin was anesthetized be a 25 gauge 1 eventual with approximately 2cc of 1% lidocaine solution. At this point, a 22 gauge 3inch spinal needle was atraumatically introduced and advanced under fluoroscopic guidance into the inferior aspect of the left sacroiliac joint. Following negative aspiration, approximately 0.3cc of Isovue-300 was injected confirming intra-articular placement without vascular uptake. Radiographic data, including multiple fluoroscopic views of the pelvis, reveals a spinal needle in the left sacroiliac joint hyper lucent zone. Subsequent view show flow contrast tear superiorly and inferiorly within the joint capsule without vascular intrathecal uptake. At this point a total of 1cc or 0.5% Marcaine was combined with 1cc of 6mg of betamethasone was injected without incident. The patient tolerated the procedure well without signs or symptoms of complications prior to transfer to the recovery area for further monitoring. The patient was then transferred to the recovery area with a bur observed for an appropriate time after the injection. The patient reverted a vas score of 7 prior to the procedure and postprocedure vas of 1. POSTOP INSTRUCTIONS The patient was provided with a pain like to continue to record the patient's response to the target specific procedure prior to the patient's follow-up visit with the referring physician. Additionally, specific post injection care instructions and a contact number to our office were provided if concerns arise regarding the possible complications associated with procedure are suspected.
--- NOTE | 2023-11-28 10:25 | PM.PROC.IR.1 ---
Date/Time/Diagnoses Date of procedure: 11/28/23 Time of procedure: 10:25 Procedure Notes Total Fluoroscopy time (seconds): 8 Total sedation minutes: 13
== END 2023-11-28 10:44 | disposition home or self-care (01) ==
PROVIDERS: PCP Family Medicine; Referring Provider Physical Medicine & Rehabilitation; Visit Provider Physical Medicine & Rehabilitation
DX: M53.3 Sacrococcygeal disorders, not elsewhere classified (principal); M46.1 Sacroiliitis, not elsewhere classified
CPT/HCPCS: 27096; 99152; J0702; J2250

== ENCOUNTER 2024-06-06 12:09 | Outpatient (CLI) | payer MEDICARE, OTHER, SELFPAY ==
[2024-06-06] VITALS (10 sets, daily range): BP systolic 120–157; BP diastolic 58–73; PULSE 73–84; RESP 14–22; TEMP 37.1; O2SAT 93–98
--- NOTE | 2024-06-06 12:14 | DI.RAD.S_ITS ---
PROCEDURE: PAIN L/S TRANSFORAM INJECT [facility] COMPARISON: None. INDICATIONS: Bilateral L4-5 transforaminal FINDINGS: Intraoperative images demonstrate opacification of the bilateral L4-L5 foraminal levels for transforaminal injection. IMPRESSION: Intraoperative images of bilateral L4-L5 transforaminal injections. Please refer to the operative report for further details. Dictated by: Tae Thompson M.D. on 06/06/2024 at 15:32 Approved by: Tae Thompson M.D. on 06/06/2024 at 15:33
[2024-06-06] MEDS: MIDAZOLAM 2 MG/2 ML VIAL 1 MG IV ×2 (13:04→13:10)
[2024-06-06] MEDS: DEXAMETHASONE 10 MG/ML VIAL 20 MG INJ (13:08)
[2024-06-06] MEDS: iopamidoL 15 ML VIAL 3 ML INJ (13:09)
[2024-06-06] MEDS: BUPIVACAINE 0.25% (PF) VIAL 2 ML INJ (13:09)
[2024-06-06] MEDS: BETAMETHASONE 30 MG/5 ML MDV 12 MG INJ (13:10)
--- NOTE | 2024-06-06 13:31 | PM.PROC.IR.1 ---
Date/Time/Diagnoses Date of procedure: 06/06/24 Time of procedure: 13:32 Pre-procedure diagnosis: 1. FORAMINAL STENOSIS WITH LE SYMPTOMS Procedure Notes Procedure: 1. FLUOROSCOPICALLY GUIDED CONTRAST CONTROLLED TRANSFORAMINAL EPIDURAL STEROID INJECTION - BILATERAL L4/5 TFESI Indications: Holly is referred by Dr. Walker for treatment of Foraminal Stenosis with bilateral LE Symptoms Physician: Maurice Schroeder Total Fluoroscopy time (seconds): 23 Total sedation minutes: 21 Complications: none Procedure in detail & Post-procedure care: FINDINGS Foraminal Nerve Root Compression secondary to disc disease and facet hypertrophy DESCRIPTION OF PROCEDURE Following review of allergy and review of potential side effects and complications, including, but not necessarily limited to, infection, allergic reaction, local tissue breakdown, stroke, temporary or permanent nerve injury, paralysis, and possible , the patient indicated that the patient understood and agreed to proceed. An informed consent document was signed by the patient, witnessed by a nurse, and placed in the patient's chart. Additionally, other treatment options including medications, modalities, and physical therapy were reviewed with the patient. After review of previous anaesthesic history and IV conscious sedation the patient was deemed safe to proceed with today?s procedure with IV conscious sedation as ASA class II designation. Safety time-out was performed to confirm patient ID, procedure to be performed and site of procedure. IV sedation was accomplished with a combination of 2mg of Versed was administered by the RN after DO order, titrated to patient comfort during the course of the procedure while the patient remained responsive to all verbal commands In the prone position following sterile prep and drape of the lumbar region, the right L4/5 posterior neuroforamen was identified fluoroscopically. The skin was anesthetized via a 25-gauge 1.5-inch needle with 1% lidocaine solution. At this point, a 25-gauge 3.5-inch spinal needle was atraumatically introduced and advanced under fluoroscopic guidance through the posterior right L4/5 neuroforamen to approximately the anterior aspect of the canal. Depth was confirmed on lateral view. Following negative aspiration, injection of approximately 1.5cc of Isovue 200 under live fluoroscopy in the AP view confirmed excellent flow along the nerve root, into the epidural space without vascular or intrathecal uptake observed Radiological data, including multiple fluoroscopic views of the lumbosacral spine, reveal a spinal needle at the right L4/5 posterior neuroforamen. Subsequent views show flow of contrast material flowing superiorly and inferiorly along the nerve root confirming epidural flow. Subsequently, a test dose of 1.5cc of 1% lidocaine solution was administered and patient was observed for two minutes for signs or symptoms of complications, including abdominal pain, shortness of breath, bilateral upper or lower extremity weakness, nausea and vomiting, prior to steroid injection. At this point, a total of 2cc or 10mg of dexamethasone and 6mg betamethasone was injected without incident. Attention was then refocused to the left L4/5 level where the identical procedure was replicated. The procedure tolerated the procedure well without signs or symptoms of complications prior to transfer to the recovery area continued monitoring without incident. The patient was then transferred to the recovery area where they were observed for an appropriate time after the injection. The patient reported a VAS score of 7 prior to the procedure and a post-procedure VAS of 1. POST OP INSTRUCTIONS The patient was provided a Pain Log to continue to record their response to the target-specific procedure prior to follow-up visit with their referring physician. Additionally, specific post-injection care instructions and a contact number to our office were provided if concerns arise regarding possible complications associated with the procedure are suspected.
== END 2024-06-06 13:45 | disposition home or self-care (01) ==
PROVIDERS: PCP Family Medicine; Referring Provider Physical Medicine & Rehabilitation; Visit Provider Physical Medicine & Rehabilitation
DX: M48.061 Spinal stenosis, lumbar region without neurogenic claudication (principal); M51.16 Intervertebral disc disorders with radiculopathy, lumbar region; M47.26 Other spondylosis with radiculopathy, lumbar region
CPT/HCPCS: 64483; 99152; J0702; J1100; J2250; J3490

== ENCOUNTER 2024-08-01 09:24 | Outpatient (CLI) | payer MEDICARE, OTHER, SELFPAY ==
[2024-08-01] VITALS (9 sets, daily range): BP systolic 117–162; BP diastolic 58–71; PULSE 67–82; RESP 14–18; O2SAT 95–99
[2024-08-01] MEDS: MIDAZOLAM 2 MG/2 ML VIAL IV (09:56)
[2024-08-01] MEDS: BETAMETHASONE 30 MG/5 ML MDV 12 MG INJ (10:02)
[2024-08-01] MEDS: BUPIVACAINE 0.25% (PF) VIAL 5 ML INJ (10:03)
[2024-08-01] MEDS: iopamidoL 15 ML VIAL 3 ML INJ (10:03)
[2024-08-01] MEDS: DEXAMETHASONE 10 MG/ML VIAL INJ (10:04)
--- NOTE | 2024-08-01 10:20 | P.PCN_ITS ---
Date/Time/Diagnoses Date of procedure: 08/01/24 Time of procedure: 10:20 Pre-procedure diagnosis: 1. FORAMINAL STENOSIS WITH LE SYMPTOMS Post-procedure diagnosis: same Procedure Notes Procedure: 1. FLUOROSCOPICALLY GUIDED CONTRAST CONTROLLED TRANSFORAMINAL EPIDURAL STEROID INJECTION - RIGHT L3/4 TFESI Indications: Holly is referred by Dr. Walker for treatment of Foraminal Stenosis with right LE Symptoms Physician: Maurice Schroeder Total Fluoroscopy time (seconds): 12 Total sedation minutes: 17 Complications: none Procedure in detail & Post-procedure care: FINDINGS Foraminal Nerve Root Compression secondary to disc disease and facet hypertrophy DESCRIPTION OF PROCEDURE Following review of allergy and review of potential side effects and complications, including, but not necessarily limited to, infection, allergic reaction, local tissue breakdown, stroke, temporary or permanent nerve injury, paralysis, and possible , the patient indicated that the patient understood and agreed to proceed. An informed consent document was signed by the patient, witnessed by a nurse, and placed in the patient's chart. Additionally, other treatment options including medications, modalities, and physical therapy were reviewed with the patient. After review of previous anaesthesic history and IV conscious sedation the patient was deemed safe to proceed with today?s procedure with IV conscious sedation as ASA class II designation. Safety time-out was performed to confirm patient ID, procedure to be performed and site of procedure. IV sedation was accomplished with a combination of 2mg of Versed was administered by the RN after DO order, titrated to patient comfort during the course of the procedure while the patient remained responsive to all verbal commands In the prone position following sterile prep and drape of the lumbar region, the right L3/4 posterior neuroforamen was identified fluoroscopically. The skin was anesthetized via a 25-gauge 1.5-inch needle with 1% lidocaine solution. At this point, a 25-gauge 3.5-inch spinal needle was atraumatically introduced and advanced under fluoroscopic guidance through the posterior right L3/4 neuroforamen to approximately the anterior aspect of the canal. Depth was confirmed on lateral view. Following negative aspiration, injection of approximately 1.5 cc of Isovue 200 under live fluoroscopy in the AP view conf irmed excellent flow along the nerve root, into the epidural space without vascular or intrathecal uptake observed Radiological data, including multiple fluoroscopic views of the lumbosacral spine, reveal a spinal needle at the right L3/4 posterior neuroforamen. Subsequent views show flow of contrast material flowing superiorly and inferiorly along the nerve root confirming epidural flow. Subsequently, a test dose of 1.5 cc of 1% lidocaine solution was administered and patient was observed for two minutes for signs or symptoms of complications, including abdominal pain, shortness of breath, bilateral upper or lower extremity weakness, nausea and vomiting, prior to steroid injection. At this point, a total of 2cc or 10mg of dexamethasone and 6mg of betamethasone was injected without incident. The patient tolerated the procedure well without signs or symptoms of complications prior to transfer to the recovery area continued monitoring without incident. The patient was then transferred to the recovery area where they were observed for an appropriate time after the injection. The patient reported a VAS score of 7 prior to the procedure and a post-procedure VAS of 0. POST OP INSTRUCTIONS The patient was provided a Pain Log to continue to record their response to the target-specific procedure prior to follow-up visit with their referring phy sician. Additionally, specific post-injection care instructions and a contact number to our office were provided if concerns arise regarding possible complications associated with the procedure are suspected.
== END 2024-08-01 10:33 | disposition home or self-care (01) ==
PROVIDERS: PCP Family Medicine; Referring Provider Physical Medicine & Rehabilitation; Visit Provider Physical Medicine & Rehabilitation
DX: M48.061 Spinal stenosis, lumbar region without neurogenic claudication (principal); M51.16 Intervertebral disc disorders with radiculopathy, lumbar region; M47.26 Other spondylosis with radiculopathy, lumbar region
CPT/HCPCS: 64483; 99152; J0702; J1100; J2250; J3490

== ENCOUNTER 2025-03-13 15:00 | Outpatient (CLI) | payer MEDICARE, OTHER, SELFPAY ==
[2025-03-13] VITALS (9 sets, daily range): BP systolic 130–194; BP diastolic 61–109; PULSE 76–83; RESP 17–20; TEMP 36.4; O2SAT 96–99
[2025-03-13] MEDS: MIDAZOLAM 2 MG/2 ML VIAL IV (16:24)
[2025-03-13] MEDS: BETAMETHASONE 30 MG/5 ML MDV 6 MG INJ (16:35)
--- NOTE | 2025-03-14 14:52 | P.PCN_ITS ---
Date/Time/Diagnoses Date of procedure: 03/13/25 Time of procedure: 15:45 Pre-procedure diagnosis: 1. HNP WITH RADICULAR FEATURES, 2. MULTILEVEL CENTRAL STENOSIS, Post-procedure diagnosis: same Procedure Notes Procedure: 1. FLUOROSCOPICALLY GUIDED CONTRAST CONTROLLED INTERLAMINAR EPIDURAL STEROID INJECTION -L4/5 Indications: Holly is referred by Dr. Walker for treatment of Bilateral Foraminal Stenosis R>L LE symptoms. Physician: Maurice Schroeder Total Fluoroscopy time (seconds): 9 Total sedation minutes: 12 Complications: none Procedure in detail & Post-procedure care: FINDINGS Multilevel Central Spinal Stenosis with Nerve Root Compression DESCRIPTION OF PROCEDURE Fluoroscopically guided, contrast-controlled L4/5 translaminar epidural steroid injection. Following review of allergy and review of potential side effects and complications, including, but not necessarily limited to, infection, allergic reaction, local tissue breakdown, temporary as well as permanent nerve injury, paralysis, stroke and possible , the patient indicated that the patient understood and agreed to proceed. An informed consent document was signed by the patient, witnessed by a nurse, and placed in the patient's chart. Additionally, other treatment options including modalities, medications, and physical therapy were reviewed with the patient. After review of previous anaesthesic history and IV conscious sedation the patient was deemed safe to proceed with today?s procedure with IV conscious sedation as ASA class II designation. Safety time-out was performed to confirm patient ID, procedure to be performed and site of procedure. IV sedation was accomplished with a combination of 2mg of Versed was administered by the RN after DO order, titrated to patient comfort during the course of the procedure while the patient remained responsive to all verbal commands In the prone position, following sterile prep and drape of the lumbar region, the L4/5 translaminar space was identified fluoroscopically. The skin was anesthetized via a 25-gauge, 1.5inch needle with 1% lidocaine solution. At this point, a 22-gauge short bevel spinal needle was atraumatically introduced and a dvanced under fluoroscopic guidance into the region of the L4/5 translaminar space. Depth was confirmed on lateral view. Radiological data, including multiple fluoroscopic views of the lumbar spine, reveal a spinal needle at the L4/5 translaminar space. Lateral views then show placement of the needle in the epidural space. Subsequent views show contrast material flowing superiorly and inferiorly in the epidural space. No vascular or intrathecal uptake is observed. At this point, using loss of resistance technique with saline and air, the epidural space was entered. This was confirmed following negative aspiration with injection of approximately 1.5cc of Isovue 200, showing excellent epidural flow without vascular or intrathecal uptake. At this point, 1cc of 0.25% marcaine solution combined with 3cc or 10mg of dexamethasone and 12mg betamethasone was injected without incident. The patient tolerated the procedure well without signs or symptoms of complications prior to transfer to the recovery area continued monitoring without incident. The patient was then transferred to the recovery area where they were observed for an appropriate period of time after the injection. The patient reported a VAS score of 8 prior to the procedure and a post- procedure VAS of 1. POST OP INSTRUCTIONS The patient was provided a Pain Log to continue to record their response to the target-specific procedure prior to follow-up visit with their referring physician. Additionally, specific post-injection care instructions and a contact number to our office were provided if concerns arise regarding possible complications associated with the procedure are suspected.
== END 2025-03-13 17:10 | disposition home or self-care (01) ==
PROVIDERS: PCP Family Medicine; Referring Provider Physical Medicine & Rehabilitation; Visit Provider Physical Medicine & Rehabilitation
DX: M51.16 Intervertebral disc disorders with radiculopathy, lumbar region (principal); M48.061 Spinal stenosis, lumbar region without neurogenic claudication
CPT/HCPCS: 62323; 99152; J0702; J1010; J1100; J2250